=== PATIENT | male | born 1955 | race Caucasian/White ===

== ENCOUNTER → 2016-09-08 | Outpatient (CLI) | payer MEDICARE, MEDICAID | LOC: OD 16:45 | PROVIDERS: ATTEND Internal Medicine | DX: M25.551 Pain in right hip (principal) | CPT/HCPCS: 72170 ==

== ENCOUNTER → 2017-06-21 | Outpatient (CLI) | payer MEDICARE, OTHER, MEDICAID ==
--- NOTE | 2017-06-21 16:28 | RADIOLOGY REPORT (SQ) ---
EXAM DESCRIPTION: HIPS BILATERAL COMPLETED DATE/TIME: 06/21/2017 4:16 pm REASON FOR STUDY: OTHER POLYOSTEOARTHRITIS M15.8 OTHER POLYOSTEOARTHRITIS COMPARISON: 09/08/2016. NUMBER OF VIEWS: Two views TECHNIQUE: AP pelvis and additional frog-leg view of both hips. LIMITATIONS: None. FINDINGS: MINERALIZATION: Normal. HIPS: No acute fracture or dislocation. No worrisome bone lesions. PELVIS AND SACRUM: No acute fracture or dislocation. No worrisome bone lesions. PUBIS AND ISCHIUM: No acute fracture. LOWER LUMBAR SPINE: No significant findings as visualized. SOFT TISSUES: No findings. OTHER: No other significant finding. IMPRESSION: NEGATIVE STUDY OF THE PELVIS AND HIPS. TECHNICAL DOCUMENTATION: JOB ID: [id number] [employer]- All Rights Reserved
--- NOTE | 2017-06-21 16:30 | RADIOLOGY REPORT (SQ) ---
EXAM DESCRIPTION: SHOULDER BILAT 2 OR MORE VIEWS COMPLETED DATE/TIME: 06/21/2017 4:16 pm REASON FOR STUDY: OTHER POLYOSTEOARTHRITIS M15.8 OTHER POLYOSTEOARTHRITIS COMPARISON: None. NUMBER OF VIEWS: Three views. TECHNIQUE: Internal rotation, external rotation, and Y view images acquired of the right and left sh oulder. LIMITATIONS: None. FINDINGS: MINERALIZATION: Normal. BONES: No acute fracture or dislocation. Small osteophytes in the glenohumeral joint and acromioclav icular joint of both shoulders, slightly more prominent in the right glenohumeral joint. No worrisom e bone lesions. JOINTS: No dislocation. VISUALIZED LUNGS AND RIBS: No pneumothorax. No rib fracture. SOFT TISSUES: No radiopaque foreign body. OTHER: No other significant finding. IMPRESSION: DEGENERATIVE CHANGES IN BOTH SHOULDERS. NO ACUTE FINDINGS. TECHNICAL DOCUMENTATION: JOB ID: [id number] ED[employer]- All Rights Reserved
== END ==
LOC: OD 15:42
PROVIDERS: ATTEND Internal Medicine
DX: M15.8 Other polyosteoarthritis (principal)
CPT/HCPCS: 73522

== ENCOUNTER 2017-09-05 18:07 | Emergency (ER) | payer MEDICARE, OTHER, MEDICAID ==
--- NOTE | 2017-09-05 19:40 | ER Document Report ---
ED Medical Screen (RME) - General Chief Complaint: Fall Stated Complaint: FALL/HEAD PAIN Time Seen by Provider: 09/05/17 19:38 Notes: Much of the history is obtained from relative who is in the room with patient. Approximate 4 days ago patient had a fall and hit his head on the couch. This was an unwitnessed fall. No known loss of consciousness. Patient denies neck pain and does not appear to have any neck pain on exam. Patient continues to complain of headache today so patient was brought to the hospital by family. Patient is not on any known blood thinners. Patient has been having some chronic problems with dizziness over the last several months and this is what made him fall 4 days ago. TRAVEL OUTSIDE OF THE [place] IN LAST 30 DAYS: No - Related Data Allergies/Adverse Reactions: No Known Allergies Allergy (Verified 09/05/17 18:07) Past Medical History - Social History Chew tobacco use (# tins/day): No Frequency of alcohol use: None Drug Abuse: None - Past Medical History Cardiac Medical History: Reports: Hx Hypertension Neurological Medical History: Reports: Hx Seizures Endocrine Medical History: Reports: Hx Diabetes Mellitus Type 2 Renal/ Medical History: Denies: Hx Peritoneal Dialysis Musculoskeltal Medical History: Reports Hx Arthritis Psychiatric Medical History: Reports: Hx Schizophrenia - Immunizations Hx Diphtheria, Pertussis, Tetanus Vaccination: - unknown Physical Exam - Vital signs Vitals: Temp Pulse Resp BP Pulse Ox 97.5 F 118 H 20 140/84 H 99 09/05/17 18:27 09/05/17 18:27 09/05/17 18:27 09/05/17 18:27 09/05/17 18:27 Course - Vital Signs Vital signs: Temp Pulse Resp BP Pulse Ox 97.5 F 118 H 20 140/84 H 99 09/05/17 18:27 09/05/17 18:27 09/05/17 18:27 09/05/17 18:27 09/05/17 18:27
[2017-09-05 19:53] LABS: HEMATOCRIT 45.6 % (37.9-51.0); HEMOGLOBIN 15.8 g/dL (13.5-17.0); MEAN CORPUSCULAR HEMOGLOBIN 30.3 pg (27.0-33.4); MEAN CORPUSCULAR HGB CONC 34.7 g/dL (32.0-36.0); MEAN CORPUSCULAR VOLUME 87 fl (80-97); PLATELET COUNT 125 10^3/uL (150-450); RED BLOOD COUNT 5.22 10^6/uL (4.35-5.55); RED CELL DISTRIBUTION WIDTH 13.7 % (11.5-14.0); WHITE BLOOD COUNT 14.5 10^3/uL (4.0-10.5)
[2017-09-05 20:10] LABS: ALANINE AMINOTRANSFERASE 25 U/L (21-72); ALBUMIN 4.3 g/dL (3.5-5.0); ALKALINE PHOSPHATASE 34 U/L (38-126); ANION GAP 10 (5-19); ASPARTATE AMINO TRANSFERASE 13 U/L (17-59); BILIRUBIN,DIRECT 0.4 mg/dL (0.0-0.4); BILIRUBIN,TOTAL 0.4 mg/dL (0.2-1.3); BLOOD UREA NITROGEN 14 mg/dL (7-20); CALCIUM 10.1 mg/dL (8.4-10.2); CARBON DIOXIDE 23 mmol/L (22-30); CHLORIDE 105 mmol/L (98-107); GLUCOSE 108 mg/dL (75-110); SODIUM 137.9 mmol/L (137-145); TOTAL PROTEIN 6.8 g/dL (6.3-8.2)
[2017-09-05 20:13] LABS: ABSOLUTE LYMPHOCYTES# (MANUAL) 10.4 10^3/uL (0.5-4.7); ABSOLUTE MONOCYTES # (MANUAL) 0.9 10^3/uL (0.1-1.4); ABSOLUTE NEUTROPHILS# (MANUAL) 3.2 10^3/uL (1.7-8.2); BASOPHILS % (MANUAL) 0 % (0-2); EOSINOPHILS % (MANUAL) 0 % (0-6); LYMPHOCYTES % (MANUAL) 58 % (13-45); MONOCYTES % (MANUAL) 6 % (3-13); SEGMENTED NEUTROPHILS % (MAN) 22 % (42-78); TOTAL CELLS COUNTED 100
[2017-09-05 20:15] LABS: PLATELET COMMENT ADEQUATE; RBC MORPHOLOGY COMMENT NORMO-CYTIC/CHROMIC
--- NOTE | 2017-09-05 20:20 | ER Document Report ---
ED Fall - General Chief Complaint: Fall Stated Complaint: FALL/HEAD PAIN Time Seen by Provider: 09/05/17 19:38 Mode of Arrival: Ambulatory Information source: Patient, Relative TRAVEL OUTSIDE OF THE [place] IN LAST 30 DAYS: No - HPI Patient complains to provider of: FALL, HEADACHE Notes: The patient is here with family at the bedside. Most of the information is obtained from the family. Apparently 4 days ago the patient had an unwitnessed fall. Is unclear if he had a seizure or if he tripped and fell as the patient says both of these occurred. The patient does have a history of seizure disorder. When he fell he hit the back of his head. Is unclear if there was loss of consciousness. Apparently he has been feeling fine until today when he started to have a headache again. no vomiting. He is on no blood thinners. No chest pain or shortness of breath. No unilateral numbness, tingling, weakness. Patient has a history of chronic dizziness, his relatives is that it is not uncommon for him to have falls. Patient denies any change in his vision. He denies any neck, back, chest, abdominal pain. He denies any other injuries with the fall. His only concern is that he still has a headache. - Related data Allergies/Adverse Reactions: No Known Allergies Allergy (Verified 09/05/17 18:07) Past Medical History - Social History Smoking Status: Never Smoker Chew tobacco use (# tins/day): No Frequency of alcohol use: None Drug Abuse: None Family History: None Patient has suicidal ideation: No Patient has homicidal ideation: No - Past Medical History Cardiac Medical History: Reports: Hx Hypertension Neurological Medical History: Reports: Hx Seizures Endocrine Medical History: Reports: Hx Diabetes Mellitus Type 2 Renal/ Medical History: Denies: Hx Peritoneal Dialysis Musculoskeltal Medical History: Reports Hx Arthritis Psychiatric Medical History: Reports: Hx Schizophrenia - Immunizations Hx Diphtheria, Pertussis, Tetanus Vaccination: - unknown Review of Systems - Review of Systems -: Yes All other systems reviewed and negative Physical Exam - Vital signs Vitals: Temp Pulse Resp BP Pulse Ox 97.5 F 118 H 20 140/84 H 99 09/05/17 18:27 09/05/17 18:27 09/05/17 18:27 09/05/17 18:27 09/05/17 18:27 - Notes Notes: GENERAL: alert, cooperative, nontoxic, no distress. HEAD: normocephalic, atraumatic EYES: conjunctiva pink without discharge, no external redness or swelling. PERRL , EOM'S INTACT EARS: no external swelling, no external redness. No hemotympanum EM NOSE: atraumatic, no external swelling. No bleeding MOUTH/THROAT: mucous membranes moist and pink, posterior pharynx without erythema, swelling, exudate. No trismus or drooling. NECK: soft, supple, full range of motion, no meningismus. No midline tenderness step-offs or crepitus to palpation of the cervical spine. CHEST: no distress, lungs clear and equal throughout. No wheezing, rales, rhonchi. CARDIAC: regular rate and rhythm, no murmur, normal capillary refill, normal pulses. No peripheral edema noted. ABDOMEN: Soft, nontender. No ecchymosis. No rebound tenderness or guarding. BACK: full range of motion, no CVA tenderness. No midline tenderness step-offs or crepitus to palpation of the thoracic or lumbar spine. EXTREMITIES: full rangE OF MOTION. Normal sensation bilaterally. Normal strength bilaterally. NEURO: Alert and oriented 3. Cranial nerves II through XII are grossly intact. Normal sensation and strength to all 4 extremities. PYSCH: appropriate mood, affect. Patient is cooperative. SKIN: pink, warm, dry, no rash. Course - Re-evaluation Re-evalutation: 09/05/17 21:05 The patient is nontoxic appearing with stable vitals. The patient is here after either tripping and falling or having a seizure and falling 4 days ago and hitting his head. He has a known history of seizure disorder. Patient has a chronic history of dizziness. Apparently had a headache the day that he hit his head, this resolved and then recurred again today. Lab work is unremarkable aside from an nonspecifically elevated white cell count of 14-1/2. EKG shows no acute findings. Head CT shows no acute findings for intracranial injury. Patient has a nonfocal neurological exam is at baseline according to his family members is here with him. This point the patient will be discharged home with instructions to take ibuprofen as needed for pain. Follow-up with his doctor if not better in the next 3-5 days, sooner for worsening symptoms, high fever, persistent vomiting, acting abnormal, or for any further concerns. The patient is noted to have elevated blood pressure during today's emergency department visit. The patient was informed of this finding. The patient was instructed that this may be related to pre-hypertension and requires further evaluation with a primary care provider. The patient has no hypertensive symptoms at this time. The patient's emergency department workup and current diagnosis were explained to the patient and or family. Follow-up instructions were provided. Medications if prescribed were discussed. Instructions for when to return to the emergency department including specific worrisome symptoms were discussed with the patient and/or family. - Vital Signs Vital signs: Temp Pulse Resp BP Pulse Ox 97.5 F 118 H 20 140/84 H 99 09/05/17 18:27 09/05/17 18:27 09/05/17 18:27 09/05/17 18:27 09/05/17 18:27 - Laboratory Result Diagrams: 09/05/17 19:40 09/05/17 19:40 Laboratory results interpreted by me: 09/05/17 09/05/17 19:40 19:40 WBC 14.5 H Plt Count 125 L Seg Neuts % (Manual) 22 L Lymphocytes % (Manual) 58 H Abs Lymphs (Manual) 10.4 H AST 13 L Alkaline Phosphatase 34 L - Diagnostic Test Radiology reviewed: Image reviewed, Reports reviewed - Head CT negative for acute findings. - EKG Interpretation by [facility] EKG shows normal: Sinus rhythm, [place], Intervals, QRS Complexes, ST-T Waves Rate: Normal When compared to previous EKG there are: No significant change Discharge - Discharge Clinical Impression: Head injury Condition: Stable Disposition: HOME, SELF-CARE Instructions: Head Injury Precautions ([facility]) Additional Instructions: Ibuprofen as needed for pain. Drink plenty of fluids. Follow-up if not better in 3-5 days, sooner for increasing pain, high fever, persistent vomiting, or for any further concerns. Your blood pressure was elevated during today's visit. Have this rechecked with your doctor. Forms: Elevated Blood Pressure, Smoking Cessation Education
--- NOTE | 2017-09-05 20:22 | RADIOLOGY REPORT (SQ) ---
EXAM DESCRIPTION: CT HEAD WITHOUT COMPLETED DATE/TIME: 09/05/2017 8:03 pm REASON FOR STUDY: fall/pain COMPARISON: 08/10/2014 TECHNIQUE: Axial images acquired through the brain without intravenous contrast. Images reviewed wi th bone, brain and subdural windows. Images stored on PACS. All CT scanners at this facility use dose modulation, iterative reconstruction, and/or weight based d osing when appropriate to reduce radiation dose to as low as reasonably achievable (ALARA). [facility]: Dose Right [facility]: CareDose [facility]: Dose Right [facility]: Teradose 4D [facility]: Smart Technologies RADIATION DOSE: CT Rad equipment meets quality standard of care and radiation dose reduction techniq ues were employed. CTDIvol: 64.6 mGy. DLP: 1034 mGy-cm. mGy. LIMITATIONS: None. FINDINGS: VENTRICLES: There is prominence of the lateral ventricles a this is stable. CEREBRUM: No masses. No hemorrhage. No midline shift. No evidence for acute infarction. Normal gra y/white matter differentiation. No areas of low density in the white matter. CEREBELLUM: No masses. No hemorrhage. No alteration of density. No evidence for acute infarction. EXTRAAXIAL SPACES: No fluid collections. No masses. ORBITS AND GLOBE: No intra- or extraconal masses. Normal contour of globe without masses. CALVARIUM: No fracture. PARANASAL SINUSES: There is a small mucous retention cyst in the right maxillary sinus. SOFT TISSUES: No mass or hematoma. OTHER: No other significant finding. IMPRESSION: Mild maxillary sinus disease. There is no acute intracranial pathology. EVIDENCE OF ACUTE STROKE: NO. COMMENT: Quality ID # [id number]: Final reports with documentation of one or more dose reduction techniques (e.g., Automated exposure control, adjustment of the mA and/or kV according to patient size, use of iterative reconstruction technique) TECHNICAL DOCUMENTATION: JOB ID: [id number] [employer]- All Rights Reserved Reading location - IP/workstation name: [email or web address]
[2017-09-05 21:35] VITALS: BP 127/77
--- NOTE | 2017-09-05 21:49 | EKG REPORT ---
SEVERITY:- NORMAL ECG - SINUS RHYTHM : Confirmed by: Melany Hinson 05-Sep-2017 21:48:24
[2017-09-06 12:55] LABS: PATH REVIEW PATHOLOGIST REVIEWED
== END 2017-09-05 21:35 | disposition home or self-care (01) ==
LOC: ER 18:07
DX: S09.90XA Unspecified injury of head, initial encounter (principal); W19.XXXA Unspecified fall, initial encounter; I10 Essential (primary) hypertension; E11.9 Type 2 diabetes mellitus without complications
CPT/HCPCS: 36415; 70450; 80053; 85025; 93005; 93010; 99284

== ENCOUNTER 2017-11-15 10:43 | Day surgery (SDC) | payer MEDICARE, OTHER, MEDICAID ==
[~2017-11-15 10:43] MED LIST: BUPIVACAINE HCL 0.75% INJ/PF (7.5 MG/1 ML) 10 ML SDV OD PRN; CHONDR SU A NA/HYALUR INTRAOC KIT (SURGICARE) ONE; EPINEPHRINE INJ/PF 1 MG/1 ML AMPULE ONE; KETOROLAC TROMETHAMINE 0.45% 4 DROP/0.4 ML DROPERETTE OD PRN; LIDOCAINE 1% INJ-PF (10 MG/ML) 30 ML SDV ONE; LIDOCAINE 4% INJ/PF (40 MG/ML) 5 ML AMPUL OD PRN
[2017-11-15] MEDS: TROPICAMIDE 1% OPH SOLN 3 ML OD PRN ×3 (11:06→11:32)
[2017-11-15] MEDS: CYCLOPENTOLATE 0.2%/PHENYLEPHRINE 1% OPH SOLN 2 ML OD PRN ×3 (11:06→11:32)
[2017-11-15] MEDS: BESIFLOXACIN HCL 0.6% OPH SUSP 5 ML BOTTLE OD PRN ×3 (11:07→12:04)
[2017-11-15] MEDS: TETRACAINE HCL 0.5% OPH SOLN 0.6 ML DROPERETTE OD PRN ×2 (11:07→11:31)
[2017-11-15] MEDS ORDERED: FENTANYL CITRATE INJ/PF 100 MCG/2 ML AMPUL ONE (11:15)
[2017-11-15] MEDS ORDERED: MIDAZOLAM 2 MG/2 ML INJ ONE (11:15)
--- NOTE | 2017-11-15 12:14 | [facility] OPERATIVE REPORT E ---
[facility] Operative Report NAME: KEYA SOSA AGE: 62Y DATE OF SURGERY: 11/15/2017 ROOM: PREOPERATIVE DIAGNOSIS: Cataract, right eye. POSTOPERATIVE DIAGNOSIS: Cataract, right eye. PROCEDURE PERFORMED: Phacoemulsification with posterior chamber intraocular lens, right eye. SURGEON: JUAN FRANCISCO CLINE M.D. ANESTHESIA: Topical with MAC. DESCRIPTION OF PROCEDURE: The patient was brought to the operating room and placed on the operative table. Following tetracaine drops, topical anesthesia was administered. This consisted of instrument wipe pledgets soaked in a solution of 4% Xylocaine mixed with 0.75% Marcaine in a 1:2 ratio. A 2 x 1 cm pledget was placed in the superior fornix. A 1 x 1 cm pledget was placed in the inferior fornix. The eye was patched shut for 5 minutes. The patch was removed. The eye was sterilely prepped and draped in the usual manner. Lid speculum was placed in the eye. The pledgets were removed, 4-0 black silk sutures were placed around the superior and the inferior rectus muscles to be used as traction. A conjunctival peritomy was made at the 10 o'clock position. Hemostasis was obtained with bipolar cautery. A posterior limbal groove was created using a crescent knife and dissected anteriorly towards the cornea. A sharp point blade was used to create a paracentesis site at the 2 o'clock position. A 2.4 mm keratome was used to enter the anterior chamber through the groove. Viscoelastic was injected into the anterior chamber. An anterior capsulotomy was performed using Utrata forceps in a capsulorrhexis fashion. Hydrodissection and hydrodelineation were performed. Phacoemulsification was performed in lgeykv-zlc-ykozack technique. Total phaco time, 48 seconds. Following this, the I/A unit was used to remove residual cortex. Viscoelastic was injected into the capsular bag. Intraocular lens Model [id number], 22.0 diopters, serial number [id number] was placed in the capsular bag. The I/A unit was used to remove residual viscoelastic. The wound was seen to be watertight under high and low pressure, and no sutures were placed. The intraocular lens was well centered. The pressure was adjusted in the eye to normal pressure. The 4-0 black silk sutures and lid speculum were removed. The eye was shielded after Besivance drops were placed. The patient tolerated the procedure well and was sent to the recovery room in good condition. DICTATING PHYSICIAN: JUAN FRANCISCO CLINE M.D. [id number] PHY#: [id number] ID: [id number] JOB#: [id number] ACCT: [id number] cc:JUAN FRANCISCO CLINE M.D. >
--- NOTE | 2017-11-15 12:15 | [facility] DISCHARGE SUMMARY E ---
[facility] Discharge Summary NAME: KEYA SOSA AGE: 62Y ADMITTED: 11/15/2017 DISCHARGED: 11/15/2017 HOSPITAL COURSE: The patient is a 62-year-old gentleman who underwent uneventful cataract extraction with intraocular lens implant, right eye, on 11/15/2017. He will be discharged to home. He was instructed to resume preoperative medications, to take Tylenol as needed for discomfort, to keep his eye shielded, to use Besivance, Durezol, and Ilevro at 3:00 p.m. and 8:00 p.m., and to follow up in my office in 1 day. DICTATING PHYSICIAN: JUAN FRANCISCO CLINE M.D. [id number] PHY#: [id number] ID: [id number] JOB#: [id number] ACCT: [id number] cc:JUAN FRANCISCO CLINE M.D. >
== END 2017-11-15 12:45 | disposition home or self-care (01) ==
LOC: SC 10:43
PROVIDERS: ATTEND Ophthalmology
DX: H25.89 Other age-related cataract (principal); I10 Essential (primary) hypertension; E11.9 Type 2 diabetes mellitus without complications; G40.909 Epilepsy, unspecified, not intractable, without status epilepticus; Z79.899 Other long term (current) drug therapy; Z79.1 Long term (current) use of non-steroidal anti-inflammatories (NSAID)
CPT/HCPCS: 66984; V2632; J2250; J3490 ×4; A9270; J0171; J3010; 142

== ENCOUNTER 2017-12-06 07:40 | Day surgery (SDC) | payer MEDICARE, OTHER, MEDICAID ==
[~2017-12-06 07:40] MED LIST changes: -BUPIVACAINE HCL 0.75% INJ/PF (7.5 MG/1 ML) 10 ML SDV OD PRN; +BUPIVACAINE HCL 0.75% INJ/PF (7.5 MG/1 ML) 10 ML SDV OS PRN; -KETOROLAC TROMETHAMINE 0.45% 4 DROP/0.4 ML DROPERETTE OD PRN; +KETOROLAC TROMETHAMINE 0.45% 4 DROP/0.4 ML DROPERETTE OS PRN; -LIDOCAINE 4% INJ/PF (40 MG/ML) 5 ML AMPUL OD PRN; +LIDOCAINE 4% INJ/PF (40 MG/ML) 5 ML AMPUL OS PRN; +TOBRAMYCIN SULFATE/DEXAMETH OPH SUSP 2.5 ML ONE
[2017-12-06] MEDS: TROPICAMIDE 1% OPH SOLN 3 ML OS PRN ×3 (08:21→08:45)
[2017-12-06] MEDS: TETRACAINE HCL 0.5% OPH SOLN 0.6 ML DROPERETTE OS PRN ×2 (08:21→08:50)
[2017-12-06] MEDS: TOBRAMYCIN SULFATE/DEXAMETH OPH SUSP 2.5 ML OS PRN ×4 (08:21→09:25)
[2017-12-06] MEDS: CYCLOPENTOLATE 0.2%/PHENYLEPHRINE 1% OPH SOLN 2 ML OS PRN ×3 (08:21→08:45)
[2017-12-06] MEDS ORDERED: FENTANYL CITRATE INJ/PF 100 MCG/2 ML AMPUL ONE (08:35)
[2017-12-06] MEDS ORDERED: MIDAZOLAM 2 MG/2 ML INJ ONE (08:35)
[2017-12-06] MEDS ORDERED: ONDANSETRON HCL INJ/PF 4 MG/2 ML SDV ONE (08:36)
--- NOTE | 2017-12-06 10:05 | [facility] OPERATIVE REPORT E ---
[facility] Operative Report NAME: KEYA SOSA AGE: 62Y DATE OF SURGERY: 12/06/2017 ROOM: PREOPERATIVE DIAGNOSIS: Cataract, left eye. POSTOPERATIVE DIAGNOSIS: Cataract, left eye. OPERATION: Phacoemulsification with posterior chamber intraocular lens, left eye. SURGEON: JUAN FRANCISCO CLINE M.D. ANESTHESIA: Topical with MAC. INDICATIONS FOR SURGERY: Difficulty with reading and watching TV. Best corrected vision acuity 20/50. PROCEDURE: The patient was brought to the Operating Room and placed on the operative table. Following tetracaine drops, topical anesthesia was administered. This consisted of instrument wipe pledgets soaked in a solution of 4% Xylocaine mixed with 0.75% Marcaine in a 1:2 ratio. A 2 x 1 cm pledget was placed in the superior fornix. A 1 x 1 cm pledget was placed in the inferior fornix. The eye was patched shut for 5 minutes. The patch was removed. The eye was sterilely prepped and draped in the usual manner. Lid speculum was placed in the eye. The pledgets were removed. 4-0 black silk sutures were placed around the superior and the inferior rectus muscles to be used as traction. A conjunctival peritomy was made at the 10 o'clock position. Hemostasis was obtained with bipolar cautery. A posterior limbal groove was created using a crescent knife and dissected anteriorly towards the cornea. A sharp point blade was used to create a paracentesis site at the 2 o'clock position. A 2.4 mm keratome was used to enter the anterior chamber through the groove. Viscoelastic was injected into the anterior chamber. An anterior capsulotomy was performed using Utrata forceps in a capsulorrhexis fashion. Hydrodissection and hydrodelineation were performed. Phacoemulsification was performed in zooegn-pwf-yzzwtib technique. A total of 4.75 CDE seconds phaco time was used. Following this, the I/A unit was used to remove residual cortex. Viscoelastic was injected into the capsular bag. Intraocular lens model SN60WF, 23.0 diopters, serial number [id number] was placed in the capsular bag. The I/A unit was used to remove residual viscoelastic. The wound was seen to be watertight under high and low pressure, and no sutures were placed. The intraocular lens was well centered. The pressure was adjusted in the eye to normal pressure. The 4-0 black silk sutures and lid speculum were removed. The eye was shielded after Besivance drops were placed. The patient tolerated the procedure well and was sent to the Recovery Room in good condition. DICTATING PHYSICIAN: JUAN FRANCISCO CLINE M.D. [id number] PHY#: [id number] ID: [id number] JOB#: [id number] ACCT: [id number] cc:JUAN FRANCISCO CLINE M.D. >
--- NOTE | 2017-12-06 10:09 | [facility] DISCHARGE SUMMARY E ---
[facility] Discharge Summary NAME: KEYA SOSA AGE: 62Y ADMITTED: 12/06/2017 DISCHARGED: 12/06/2017 FINAL DIAGNOSIS: Cataract, left eye. HOSPITAL COURSE: The patient is a 62-year-old gentleman who underwent uneventful cataract extraction with intraocular lens implant left eye on 12/06/17. He will be discharged to home. He is instructed to resume preoperative medications, to take Tylenol as needed for discomfort, to keep his eye shielded, to use Tobramycin, Durezol and ketorolac at 3 p.m. and 8 p.m., and to follow up in my office in one day. DICTATING PHYSICIAN: JUAN FRANCISCO CLINE M.D. [id number] PHY#: [id number] ID: [id number] JOB#: [id number] ACCT: [id number] cc:JUAN FRANCISCO CLINE M.D. >
== END 2017-12-06 10:15 | disposition home or self-care (01) ==
LOC: SC 07:40
PROVIDERS: ATTEND Ophthalmology
DX: H25.812 Combined forms of age-related cataract, left eye (principal); Z96.1 Presence of intraocular lens; G40.909 Epilepsy, unspecified, not intractable, without status epilepticus; I10 Essential (primary) hypertension; Z79.899 Other long term (current) drug therapy
CPT/HCPCS: 66984; 82962; V2632; J2250; J3490 ×5; A9270; J0171; J3010; J2405; 142

== ENCOUNTER → 2017-12-26 | Outpatient (CLI) | payer MEDICARE, OTHER, MEDICAID ==
[2017-12-26 11:39] LABS: HEMATOCRIT 41.8 % (37.9-51.0); HEMOGLOBIN 14.6 g/dL (13.5-17.0); MEAN CORPUSCULAR HEMOGLOBIN 31.1 pg (27.0-33.4); MEAN CORPUSCULAR HGB CONC 34.9 g/dL (32.0-36.0); MEAN CORPUSCULAR VOLUME 89 fl (80-97); PLATELET COUNT 161 10^3/uL (150-450); RED BLOOD COUNT 4.68 10^6/uL (4.35-5.55); RED CELL DISTRIBUTION WIDTH 14.6 % (11.5-14.0); WHITE BLOOD COUNT 9.8 10^3/uL (4.0-10.5)
[2017-12-26 11:51] LABS: ALANINE AMINOTRANSFERASE 18 U/L (21-72); ALBUMIN 4.1 g/dL (3.5-5.0); ALKALINE PHOSPHATASE 34 U/L (38-126); ANION GAP 13 (5-19); ASPARTATE AMINO TRANSFERASE 11 U/L (17-59); BILIRUBIN,DIRECT 0.3 mg/dL (0.0-0.4); BILIRUBIN,TOTAL 0.6 mg/dL (0.2-1.3); BLOOD UREA NITROGEN 16 mg/dL (7-20); CALCIUM 10.2 mg/dL (8.4-10.2); CARBON DIOXIDE 23 mmol/L (22-30); CHLORIDE 107 mmol/L (98-107); CHOLESTEROL 143.21 mg/dL (0-200); GLUCOSE 90 mg/dL (75-110); POTASSIUM 4.1 mmol/L (3.6-5.0); SODIUM 143.4 mmol/L (137-145); TOTAL PROTEIN 6.7 g/dL (6.3-8.2); TRIGLYCERIDES 105 mg/dL (<150)
[2017-12-26 11:53] LABS: ABSOLUTE LYMPHOCYTES# (MANUAL) 7.9 10^3/uL (0.5-4.7); ABSOLUTE MONOCYTES # (MANUAL) 0.1 10^3/uL (0.1-1.4); ABSOLUTE NEUTROPHILS# (MANUAL) 1.8 10^3/uL (1.7-8.2); BASOPHILS % (MANUAL) 0 % (0-2); EOSINOPHILS % (MANUAL) 0 % (0-6); LYMPHOCYTES % (MANUAL) 77 % (13-45); MONOCYTES % (MANUAL) 1 % (3-13); SEGMENTED NEUTROPHILS % (MAN) 18 % (42-78); TOTAL CELLS COUNTED 100
[2017-12-26 11:55] LABS: ANISOCYTOSIS SLIGHT; BURR CELLS 1+; OVALOCYTES SLIGHT; PLATELET COMMENT ADEQUATE; POIKILOCYTOSIS 1+
[2017-12-26 12:03] LABS: DIRECT LDL 69 mg/dL (<100)
[2017-12-27 12:21] LABS: PATH REVIEW PATHOLOGIST REVIEWED
== END ==
LOC: OD 10:12
PROVIDERS: ATTEND Physician Assistant
DX: F25.0 Schizoaffective disorder, bipolar type (principal); Z79.899 Other long term (current) drug therapy
CPT/HCPCS: 36415; 80053; 80061; 80164; 83036; 84146; 85025

== ENCOUNTER 2018-09-08 17:26 | Observation (INO) | payer MEDICARE, OTHER, MEDICAID ==
[2018-09-08] MEDS ORDERED: NORMAL SALINE 1000 ML 1,000 ML IV ONE (18:10)
[2018-09-08] MEDS ORDERED: ONDANSETRON HCL INJ/PF 4 MG/2 ML SDV IV ONE (18:10)
--- NOTE | 2018-09-08 18:10 | ER Document Report ---
ED Medical Screen (RME) - General Chief Complaint: Abdominal Pain Stated Complaint: ABDOMINAL PAIN Time Seen by Provider: 09/08/18 18:08 Primary Care Provider: GAGAN PINEDO PA-C [Primary Care Provider] - Follow up as needed Mode of Arrival: Ambulatory Information source: Patient Notes: This is a 63-year-old man with a history of epilepsy, hypertension, diabetes who was brought into the emergency room with nausea, vomiting, diarrhea and epigastric pain. Patient is accompanied by his brother who is taking care of him. Patient is developmentally challenged. TRAVEL OUTSIDE OF THE [place] IN LAST 30 DAYS: No - Related Data Allergies/Adverse Reactions: No Known Allergies Allergy (Verified 09/08/18 17:28) Past Medical History - Social History Chew tobacco use (# tins/day): No Frequency of alcohol use: None Drug Abuse: None - Past Medical History Cardiac Medical History: Reports: Hx Hypertension Denies: Hx Heart Attack Pulmonary Medical History: Denies: Hx Asthma Neurological Medical History: Reports: Hx Seizures. Denies: Hx Cerebrovascular Accident Endocrine Medical History: Reports: Hx Diabetes Mellitus Type 2 Renal/ Medical History: Denies: Hx Peritoneal Dialysis GI Medical History: Denies: Hx Hepatitis, Hx Hiatal Hernia, Hx Ulcer Musculoskeltal Medical History: Reports Hx Arthritis Psychiatric Medical History: Reports: Hx Schizophrenia Infectious Medical History: Denies: Hx Hepatitis Past Surgical History: Reports: Hx Orthopedic Surgery - R hand. Denies: Hx Open Heart Surgery, Hx Pacemaker - Immunizations Hx Diphtheria, Pertussis, Tetanus Vaccination: - unknown Physical Exam - Vital signs Vitals: Temp Pulse Resp BP Pulse Ox 98.7 F 129 H 18 101/71 93 09/08/18 17:34 09/08/18 17:34 09/08/18 17:34 09/08/18 17:34 09/08/18 17:34 Course - Vital Signs Vital signs: Temp Pulse Resp BP Pulse Ox 98.7 F 129 H 18 101/71 93 09/08/18 17:34 09/08/18 17:34 09/08/18 17:34 09/08/18 17:34 09/08/18 17:34 Doctor's Discharge - Discharge Referrals: GAGAN PINEDO PA-C [Primary Care Provider] - Follow up as needed
--- NOTE | 2018-09-08 18:51 | RADIOLOGY REPORT (SQ) ---
EXAM DESCRIPTION: CHEST 2 VIEWS COMPLETED DATE/TIME: 09/08/2018 6:38 pm REASON FOR STUDY: chest pain COMPARISON: 07/15/2014 TECHNIQUE: Frontal and lateral radiographic views of the chest acquired. NUMBER OF VIEWS: Two view. LIMITATIONS: None. FINDINGS: LUNGS AND PLEURA: No pneumothorax. Increased markings in the lingula, possible developing infiltrate versus subsegmental atelectasis. No dense consolidation or pleural effusion. MEDIASTINUM AND HILAR STRUCTURES: Stable. HEART AND VASCULAR STRUCTURES: Stable. BONES: No acute findings. HARDWARE: None in the chest. OTHER: No other significant finding. IMPRESSION: Increased markings in the lingula, possible developing infiltrate versus subsegmental at electasis. No dense consolidation or pleural effusion. COMMENT: Follow-up radiograph recommended in 1 month to confirm clearing. TECHNICAL DOCUMENTATION: JOB ID: [id number] [employer]- All Rights Reserved Reading location - IP/workstation name: [email or web address]
[2018-09-08 19:15] LABS: ABSOLUTE LYMPHOCYTES (AUTO) 2.2 10^3/uL (0.5-4.7); ABSOLUTE MONOCYTES (AUTO) 0.8 10^3/uL (0.1-1.4); ABSOLUTE NEUT (AUTO) 4.2 10^3/uL (1.7-8.2); BASOPHILS % (AUTO) 0.4 % (0-2); EOSINOPHILS % (AUTO) 0.1 % (0-6); HEMATOCRIT 42.8 % (37.9-51.0); HEMOGLOBIN 15.1 g/dL (13.5-17.0); LYMPHOCYTES % (AUTO) 30.5 % (13-45); MEAN CORPUSCULAR HEMOGLOBIN 29.8 pg (27.0-33.4); MEAN CORPUSCULAR HGB CONC 35.4 g/dL (32.0-36.0); MEAN CORPUSCULAR VOLUME 84 fl (80-97); MONOCYTES % (AUTO) 10.8 % (3-13); PLATELET COUNT 160 10^3/uL (150-450); RED BLOOD COUNT 5.09 10^6/uL (4.35-5.55); RED CELL DISTRIBUTION WIDTH 14.5 % (11.5-14.0); SEGMENTED NEUTROPHILS % (AUTO) 58.2 % (42-78); TOTAL CELLS COUNTED % (AUTO) 100 %; WHITE BLOOD COUNT 7.3 10^3/uL (4.0-10.5)
[2018-09-08 19:47] LABS: ALANINE AMINOTRANSFERASE 10 U/L (21-72); ALBUMIN 4.6 g/dL (3.5-5.0); ALKALINE PHOSPHATASE 39 U/L (38-126); ANION GAP 18 (5-19); ASPARTATE AMINO TRANSFERASE 14 U/L (17-59); BILIRUBIN,DIRECT 0.2 mg/dL (0.0-0.4); BILIRUBIN,TOTAL 0.5 mg/dL (0.2-1.3); BLOOD UREA NITROGEN 48 mg/dL (7-20); CALCIUM 9.9 mg/dL (8.4-10.2); CARBON DIOXIDE 17 mmol/L (22-30); CHLORIDE 103 mmol/L (98-107); GLUCOSE 139 mg/dL (75-110); LIPASE 158.5 U/L (23-300); POTASSIUM 3.7 mmol/L (3.6-5.0); SODIUM 137.9 mmol/L (137-145); TOTAL PROTEIN 7.1 g/dL (6.3-8.2)
[2018-09-08] MEDS ORDERED: RINGERS SOLUTION,LACTATED 1,000 ML IV ONE (20:27)
[2018-09-08] MEDS ORDERED: LEVOFLOXACIN 750 MG/D5W RTU 750 MG/150 ML RTUPB IV ONE (21:02)
--- NOTE | 2018-09-08 21:04 | ER Document Report ---
ED General - General Chief Complaint: Abdominal Pain Stated Complaint: ABDOMINAL PAIN Time Seen by Provider: 09/08/18 18:08 Primary Care Provider: GAGAN PINEDO PA-C [Primary Care Provider] - Follow up as needed Mode of Arrival: Ambulatory Cannot obtain history due to: Mentally challenged Notes: Patient is a 63-year-old male with past medical history of diabetes, hypertension, no prior abdominal surgical history, mental retardation, presents with his brother due to concerns of 2-3 days of intractable nausea, vomiting, has not had significant quantity of bowel movements. History is limited secondary to the patient's MR. He describes generalized, aching discomfort. Nothing improves or worsens his symptoms. No history of similar symptoms in the past. There have been multiple family members sick with similar illnesses recently. Mother is concerned about possible food borne contamination. Patient has not seen his primary care physician regarding today's concerns. TRAVEL OUTSIDE OF THE [place] IN LAST 30 DAYS: No - Related Data Allergies/Adverse Reactions: No Known Allergies Allergy (Verified 09/08/18 17:28) Past Medical History - General Information source: Patient, Relative - Social History Smoking Status: Never Smoker Chew tobacco use (# tins/day): No Frequency of alcohol use: None Drug Abuse: None Lives with: Family Family History: Reviewed & Not Pertinent Patient has suicidal ideation: No Patient has homicidal ideation: No - Past Medical History Cardiac Medical History: Reports: Hx Hypertension Denies: Hx Heart Attack Pulmonary Medical History: Denies: Hx Asthma Neurological Medical History: Reports: Hx Seizures. Denies: Hx Cerebrovascular Accident Endocrine Medical History: Reports: Hx Diabetes Mellitus Type 2 Renal/ Medical History: Denies: Hx Peritoneal Dialysis GI Medical History: Denies: Hx Hepatitis, Hx Hiatal Hernia, Hx Ulcer Musculoskeletal Medical History: Reports Hx Arthritis Psychiatric Medical History: Reports: Hx Schizophrenia Infectious Medical History: Denies: Hx Hepatitis Past Surgical History: Reports: Hx Orthopedic Surgery - R hand. Denies: Hx Open Heart Surgery, Hx Pacemaker - Immunizations Hx Diphtheria, Pertussis, Tetanus Vaccination: - unknown Review of Systems - Review of Systems Notes: Constitutional: Negative for fever. HENT: Negative for sore throat. Eyes: Negative for visual changes. Cardiovascular: Negative for chest pain. Respiratory: Negative for shortness of breath. Gastrointestinal: Positive for abdominal cramping and vomiting Genitourinary: Negative for dysuria. Musculoskeletal: Negative for back pain. Skin: Negative for rash. Neurological: Negative for headaches, weakness or numbness. 10 point ROS negative except as marked above and in HPI. Physical Exam - Vital signs Vitals: Temp Pulse Resp BP Pulse Ox 98.7 F 129 H 18 101/71 93 09/08/18 17:34 09/08/18 17:34 09/08/18 17:34 09/08/18 17:34 09/08/18 17:34 Interpretation: Tachycardic Notes: PHYSICAL EXAMINATION: GENERAL: Appears moderately comfortable but in no acute distress HEAD: Atraumatic, normocephalic. EYES: Pupils equal round and reactive to light, extraocular movements intact, sclera anicteric, conjunctiva are normal. ENT: nares patent, oropharynx clear without exudates. Dry mucous membranes. NECK: Normal range of motion, supple without lymphadenopathy LUNGS: Breath sounds clear to auscultation bilaterally and equal. No wheezes r ales or rhonchi. HEART: Regular tachycardia without murmurs ABDOMEN: Soft, nontender, normoactive bowel sounds. No guarding, no rebound. No masses appreciated. EXTREMITIES: Normal range of motion, no pitting or edema. No cyanosis. NEUROLOGICAL: No focal neurological deficits. Moves all extremities spontaneously and on command. PSYCH: Alert, oriented, apparent MR. SKIN: Warm, Dry, normal turgor, no rashes or lesions noted. Course - Re-evaluation Re-evalutation: 09/08/18 21:01 Patient presents with complaints of 2-3 days of persistent vomiting, difficulty tolerating oral intake at home, no significant bowel movements. Patient is noted to be tachycardic into the 120s at time of presentation. Does appear clinically dehydrated on exam. The patient does also have acute renal failure with a prerenal azotemia pattern on conference of metabolic panel and will likely require hospitalization secondary to this issue. IV fluid resuscitation has been initiated. Chest x-ray shows a possible lingular pneumonia and the patient has had a cough over the past several days which could also be contributing to his overall picture. Blood cultures and IV levofloxacin have been initiated. 09/08/18 22:58 CT without any acute findings. I will contact Dr. Toth and request hospitalization given acute kidney failure, ongoing tachycardia, as well as persistent vomiting. - Vital Signs Vital signs: Temp Pulse Resp BP Pulse Ox 98.7 F 129 H 18 101/71 93 09/08/18 17:34 09/08/18 17:34 09/08/18 17:34 09/08/18 17:34 09/08/18 17:34 - Laboratory Result Diagrams: 09/08/18 19:01 09/08/18 19:01 Laboratory results interpreted by me: 09/08/18 09/08/18 19:01 19:01 RDW 14.5 H Carbon Dioxide 17 L BUN 48 H Creatinine 2.42 H Est GFR ( Amer) 33 L Est GFR (Non-Af Amer) 27 L Glucose 139 H AST 14 L ALT 10 L Discharge - Discharge Clinical Impression: Prerenal azotemia, Lingular pneumonia, Dehydration Condition: Fair Disposition: ADMITTED INPATIENT Admitting Provider: [facility] Unit Admitted: Medical Floor Referrals: GAGAN PINEDO PA-C [Primary Care Provider] - Follow up as needed
[2018-09-08 21:38] LABS: APPEARANCE,URINE CLEAR; BILIRUBIN,URINE NEGATIVE (NEGATIVE); COLOR,URINE YELLOW; GLUCOSE, URINE NEGATIVE (NEGATIVE); KETONES,URINE NEGATIVE (NEGATIVE); LEUKOCYTE ESTERASE,URINE NEGATIVE (NEGATIVE); NITRITE,URINE NEGATIVE (NEGATIVE); PROTEIN,URINE NEGATIVE (NEGATIVE); URINE SPECIFIC GRAVITY 1.018; UROBILINOGEN,URINE NEGATIVE mg/dL (<2.0)
--- NOTE | 2018-09-08 22:17 | RADIOLOGY REPORT (SQ) ---
EXAM DESCRIPTION: CT ABDOMEN PELVIS WITHOUT IV CONTRAST COMPLETED DATE/TME: 09/08/2018 20:57 CLINICAL HISTORY: 63 years, Male, intractible vomiting, renal failure COMPARISON: 05/23/2011 CT TECHNIQUE: 307 Images stored on PACS. All CT scanners at this facility use dose modulation, iterative reconstruction, and/or weight based dosing when appropriate to reduce radiation dose to as low as reasonably achievable (ALARA). [facility]: Dose Right [facility]: CareDose [facility]: Dose Right [facility]: Teradose 4D [facility]: [employer] LIMITATIONS: None. FINDINGS: Limited evaluation of the lung bases shows minor reticulonodular change in the lingula. Osseous structures are grossly intact. The visualized liver, spleen, adrenal glands, pancreas, kidneys are unremarkable. The gallbladder is present. Negative for urinary tract calculus or hydronephrosis. No gross evidence for bowel obstruction. The prostate is mildly enlarged. No free air or free fluid. Normal appendix. Mild atheromatous change IMPRESSION: Negative for urinary tract calculus or hydronephrosis. Minor reticulonodular change in the lingula which may reflect pneumonitis. TECHNICAL DOCUMENTATION: Quality ID # 436: Final reports with documentation of one or more dose reduction techniques (e.g., Automated exposure control, adjustment of the mA and/or kV according to patient size, use of iterative reconstruction technique) copyright 2011 [employer]- All Rights Reserved
[2018-09-08] MEDS ORDERED: NORMAL SALINE 1000 ML 1,000 ML IV PRN (23:27)
[2018-09-08 23:55] LABS: INTERNATIONAL RATION (INR) 1.06; PROTHROMBIN TIME 14.3 SEC (11.4-15.4)
[2018-09-08] MEDS ORDERED: HEPARIN SOD (PORCINE) 5,000 UNIT/ML 1 ML SYRINGE SUBCUT ONE (23:59)
[2018-09-09 00:10] LABS: TROPONIN I < 0.012 ng/mL
[2018-09-09 01:53] LABS: CREATINE KINASE MB 0.49 ng/mL (<4.55)
[2018-09-09 01:54] LABS: TROPONIN I < 0.012 ng/mL
[2018-09-09 03:15] LABS: FREE T4 (FREE THYROXINE) 1.74 ng/dL (0.78-2.19)
[2018-09-09 03:29] LABS: THYROID STIMULATING HORMONE 0.95 uIU/mL (0.47-4.68)
[2018-09-09] MEDS: HEPARIN SOD (PORCINE) 5,000 UNIT/ML 1 ML SYRINGE SUBCUT SCH ×2 (05:34→13:16)
[2018-09-09 07:48] LABS: URINE AMPHETAMINES SCREEN NEGATIVE; URINE BARBITURATES SCREEN NEGATIVE; URINE BENZODIAZEPINES SCREEN NEGATIVE; URINE COCAINE SCREEN NEGATIVE; URINE MARIJUANA (THC) SCREEN NEGATIVE; URINE METHADONE SCREEN NEGATIVE; URINE PHENCYCLIDINE SCREEN NEGATIVE
[2018-09-09 07:56] LABS: ABSOLUTE LYMPHOCYTES (AUTO) 1.8 10^3/uL (0.5-4.7); ABSOLUTE MONOCYTES (AUTO) 0.7 10^3/uL (0.1-1.4); ABSOLUTE NEUT (AUTO) 3.5 10^3/uL (1.7-8.2); BASOPHILS % (AUTO) 0.3 % (0-2); EOSINOPHILS % (AUTO) 0.3 % (0-6); HEMATOCRIT 34.9 % (37.9-51.0); LYMPHOCYTES % (AUTO) 29.4 % (13-45); MEAN CORPUSCULAR HGB CONC 36.4 g/dL (32.0-36.0); MEAN CORPUSCULAR VOLUME 83 fl (80-97); MONOCYTES % (AUTO) 12.1 % (3-13); PLATELET COUNT 129 10^3/uL (150-450); RED BLOOD COUNT 4.24 10^6/uL (4.35-5.55); RED CELL DISTRIBUTION WIDTH 14.2 % (11.5-14.0); SEGMENTED NEUTROPHILS % (AUTO) 57.9 % (42-78); TOTAL CELLS COUNTED % (AUTO) 100 %; WHITE BLOOD COUNT 6.1 10^3/uL (4.0-10.5)
[2018-09-09 08:00] LABS: HEMOGLOBIN 12.7 g/dL (13.5-17.0)
[2018-09-09 08:12] LABS: ALANINE AMINOTRANSFERASE 13 U/L (21-72); ALBUMIN 3.2 g/dL (3.5-5.0); ALKALINE PHOSPHATASE 35 U/L (38-126); ANION GAP 11 (5-19); ASPARTATE AMINO TRANSFERASE 13 U/L (17-59); BILIRUBIN,DIRECT 0.2 mg/dL (0.0-0.4); BILIRUBIN,TOTAL 0.4 mg/dL (0.2-1.3); BLOOD UREA NITROGEN 31 mg/dL (7-20); CARBON DIOXIDE 19 mmol/L (22-30); CHLORIDE 107 mmol/L (98-107); CHOLESTEROL 80.57 mg/dL (0-200); CREATINE KINASE 28 U/L (55-170); GLUCOSE 98 mg/dL (75-110); POTASSIUM 3.3 mmol/L (3.6-5.0); SODIUM 137.2 mmol/L (137-145); TOTAL PROTEIN 5.5 g/dL (6.3-8.2); TRIGLYCERIDES 68 mg/dL (<150)
[2018-09-09 08:23] LABS: DIRECT LDL 43 mg/dL (<100)
[2018-09-09 08:27] LABS: CREATINE KINASE MB 0.59 ng/mL (<4.55)
[2018-09-09 08:34] LABS: TROPONIN I < 0.012 ng/mL
[2018-09-09] MEDS ORDERED: (PENDING PHARMACY ID) (Clonazepam [Klonopin] 0.5 MG) PO PRN (11:21)
[2018-09-09] MEDS ORDERED: CLONAZEPAM 1 MG TABLET PO PRN (11:24)
[2018-09-09] MEDS ORDERED: POTASSIUM CHLORIDE 10 MEQ CAPSULE.ER PO ONE (12:41)
[2018-09-09] MEDS ORDERED: LISINOPRIL 5 MG TABLET PO SCH (13:00)
--- NOTE | 2018-09-09 14:16 | RADIOLOGY REPORT (SQ) ---
EXAM DESCRIPTION: CT ABD/PELVIS WITH IV ONLY COMPLETED DATE/TIME: 09/09/2018 1:50 pm REASON FOR STUDY: abdominal pain COMPARISON: Noncontrast CT abdomen and pelvis 09/08/2018. CT abdomen and pelvis 05/31/2011. TECHNIQUE: CT scan of the abdomen and pelvis performed using helical scanning technique with dynamic intravenous contrast injection. No oral contrast. Images reviewed with lung, soft tissue, and bone windows. Reconstructed coronal and sagittal MPR images reviewed. Delayed images for evaluation of the urinary system also acquired. All images stored on PACS. All CT scanners at this facility use dose modulation, iterative reconstruction, and/or weight based d osing when appropriate to reduce radiation dose to as low as reasonably achievable (ALARA). [facility]: Dose Right [facility]: CareDose [facility]: Dose Right [facility]: Teradose 4D [facility]: [employer] CONTRAST TYPE AND DOSE: contrast/concentration: Isovue 350.00 mg/ml; Total Contrast Delivered: 89.0 ml; Total Saline Delivered: 70.0 ml RENAL FUNCTION: Creatinine 1.20 RADIATION DOSE: CT Rad equipment meets quality standard of care and radiation dose reduction techniq ues were employed. CTDIvol: 8.8 - 12.3 mGy. DLP: 1155 mGy-cm.. LIMITATIONS: None. FINDINGS: LOWER CHEST: Partially visualized airspace opacities at the lingula. No pleural effusion. LIVER: Subcentimeter low-attenuation density at the hepatic dome (axial image 6/98), too small to be adequately characterized. SPLEEN: Normal size. PANCREAS: No significant calcifications. No adjacent inflammation or peripancreatic fluid collections . Pancreatic duct not dilated. GALLBLADDER: No identified stones by CT criteria. No inflammatory changes to suggest cholecystitis. ADRENAL GLANDS: No significant masses or asymmetry. RIGHT KIDNEY AND URETER: No significant calcifications. No hydronephrosis or hydroureter. LEFT KIDNEY AND URETER: No significant calcifications. No hydronephrosis or hydroureter. AORTA AND VESSELS: No abdominal aortic aneurysm. RETROPERITONEUM: No retroperitoneal adenopathy, hemorrhage or masses. BOWEL AND PERITONEAL CAVITY: No dilated bowel loops or inflammatory changes. No free fluid or free ai r. APPENDIX: Normal. PELVIS: No mass. No free fluid. The urinary bladder is distended. ABDOMINAL WALL: No hernias. BONES: Degenerative changes at the spine. IMPRESSION: 1. Partially visualized airspace opacities at the lingula, may be secondary to pneumoni a. 2. No acute findings within the abdomen or pelvis. TECHNICAL DOCUMENTATION: JOB ID: [id number] AR- Quality ID # 436: Final reports with documentation of one or more dose reduction techniques (e.g., Au tomated exposure control, adjustment of the mA and/or kV according to patient size, use of iterative reconstruction technique) 2010 [employer]- All Rights Reserved Reading location - IP/workstation name: [email or web address]
--- NOTE | 2018-09-09 14:41 | PDOC H&P ---
History of Present Illness Admission Date/PCP: 09/08/18 23:13 GAGAN PINEDO PA-C History of Present Illness: KEYA SOSA is a 63 year old male he came emergency room for evaluation of ab dominal pain and vomiting, he has a history of schizophrenia, type 2 diabetes mellitus in the ER CT scan of the abdomen and pelvis without contrast was obtained, it was negative blood work revealed a serum creatinine 2.40, because of the azotemia which is probably due to dehydration from vomiting ER physician felt patient needed to be admitted for management Past Medical History Cardiac Medical History: Reports: Hypertension Denies: Myocardial Infarction Neurological Medical History: Reports: Seizures Endocrine Medical History: Reports: Diabetes Mellitus Type 2 Musculoskeltal Medical History: Reports: Arthritis Hematology: Denies: Anemia, Sickle Cell Disease Past Surgical History Past Surgical History: Reports: Orthopedic Surgery - R hand Denies: Pacemaker Social History Lives with: Family Smoking Status: Never Smoker Frequency of Alcohol Use: None Hx Recreational Drug Use: No Hx Prescription Drug Abuse: No - Advance Directive Resuscitation Status: Full Code Family History Family History: Reviewed & Not Pertinent Parental Family History Reviewed: Yes Children Family History Reviewed: Yes Sibling(s) Family History Reviewed.: Yes Medication/Allergy Home Medications: Lisinopril [Prinivil 5 mg Tablet] 5 mg PO DAILY 05/31/11 Benztropine Mesylate 1 mg PO Q12 05/27/13 Topiramate 150 mg PO Q12 11/15/17 Clonazepam [Klonopin] 0.5 mg PO DAILYP PRN 09/09/18 Clotrimazole/Betamethasone Dip [Lotrisone Cream 15 gm] 1 applic TP BID 09/09/18 Divalproex Sodium [Depakote ER 500 mg Tab.sr] 500 mg PO Q12 09/09/18 Linaclotide [Linzess] 72 mcg PO QAM 09/09/18 Montelukast Sodium [Singulair 10 mg Tablet] 10 mg PO QHS 09/09/18 Risperidone Microspheres [Risperdal Consta Inj 50 Mg/2 Ml Disp.Syrin] 50 mg IM [id number] 09/09/18 Allergies/Adverse Reactions: No Known Allergies Allergy (Verified 09/08/18 17:28) Review of Systems Constitutional: ABSENT: chills, fever(s), headache(s), weight gain, weight loss Eyes: ABSENT: visual disturbances Ears: ABSENT: hearing changes Cardiovascular: ABSENT: chest pain, dyspnea on exertion, edema, orthropnea, palpitations Respiratory: ABSENT: cough, hemoptysis Gastrointestinal: PRESENT: abdominal pain, vomiting. ABSENT: constipation, diarrhea, hematemesis, hematochezia, nausea Genitourinary: ABSENT: dysuria, hematuria Musculoskeletal: ABSENT: joint swelling Integumentary: ABSENT: rash, wounds Neurological: ABSENT: abnormal gait, abnormal speech, confusion, dizziness, focal weakness, syncope Psychiatric: ABSENT: anxiety, depression, homidical ideation, suicidal ideation Endocrine: ABSENT: cold intolerance, heat intolerance, menstrual abnormalities, polydipsia, polyuria Hematologic/Lymphatic: ABSENT: easy bleeding, easy bruising, lymphadenopathy Physical Exam Vital Signs: Temp Pulse Resp BP Pulse Ox 97.9 F 98 18 102/80 100 09/09/18 12:40 09/09/18 12:40 09/09/18 12:40 09/09/18 12:40 09/09/18 12:40 Intake & Output 09/08/18 09/09/18 09/10/18 06:59 06:59 07:59 Intake Total 2372 Balance 2372 Weight 78.3 kg General appearance: PRESENT: no acute distress, well-developed, well-nourished Head exam: PRESENT: atraumatic, normocephalic Eye exam: PRESENT: conjunctiva pink, EOMI, PERRLA Ear exam: PRESENT: normal external ear exam Mouth exam: PRESENT: moist, tongue midline Neck exam: PRESENT: full ROM Respiratory exam: PRESENT: clear to auscultation crystal Cardiovascular exam: PRESENT: RRR, +S1, +S2 Pulses: PRESENT: normal dorsalis pedis pul, +2 pedal pulses bilateral Vascular exam: PRESENT: normal capillary refill GI/Abdominal exam: PRESENT: normal bowel sounds, soft Rectal exam: PRESENT: deferred Neurological exam: PRESENT: alert, awake, oriented to person, oriented to place, oriented to time, oriented to situation, CN II-XII grossly intact Psychiatric exam: PRESENT: appropriate affect, normal mood Skin exam: PRESENT: dry, intact, warm Results Laboratory Results: 09/09/18 07:01 09/09/18 07:01 09/08/18 09/08/18 09/08/18 19:01 19:01 19:01 WBC 7.3 RBC 5.09 Hgb 15.1 Hct 42.8 MCV 84 MCH 29.8 MCHC 35.4 RDW 14.5 H Plt Count 160 Seg Neutrophils % 58.2 Lymphocytes % 30.5 Monocytes % 10.8 Eosinophils % 0.1 Basophils % 0.4 Absolute Neutrophils 4.2 Absolute Lymphocytes 2.2 Absolute Monocytes 0.8 Absolute Eosinophils 0.0 Absolute Basophils 0.0 Sodium 137.9 Potassium 3.7 Chloride 103 Carbon Dioxide 17 L Anion Gap 18 BUN 48 H Creatinine 2.42 H Est GFR ( Amer) 33 L Est GFR (Non-Af Amer) 27 L Glucose 139 H Calcium 9.9 Total Bilirubin 0.5 AST 14 L ALT 10 L Alkaline Phosphatase 39 Total Protein 7.1 Albumin 4.6 Triglycerides Cholesterol LDL Cholesterol Direct VLDL Cholesterol HDL Cholesterol Amylase 55 Lipase 158.5 Cancelled TSH Free T4 Urine Color Urine Appearance Urine pH Ur Specific [place] Urine Protein Urine Glucose (UA) Urine Ketones Urine Blood Urine Nitrite Ur Leukocyte Esterase Urine WBC (Auto) Urine RBC (Auto) 09/08/18 09/08/18 09/09/18 19:01 21:15 07:01 WBC RBC Hgb Hct MCV MCH MCHC RDW Plt Count Seg Neutrophils % Lymphocytes % Monocytes % Eosinophils % Basophils % Absolute Neutrophils Absolute Lymphocytes Absolute Monocytes Absolute Eosinophils Absolute Basophils Sodium 137.2 Potassium 3.3 L Chloride 107 Carbon Dioxide 19 L Anion Gap 11 BUN 31 H Creatinine 1.20 Est GFR ( Amer) > 60 Est GFR (Non-Af Amer) > 60 Glucose 98 Calcium 9.0 Total Bilirubin 0.4 AST 13 L ALT 13 L Alkaline Phosphatase 35 L Total Protein 5.5 L Albumin 3.2 L Triglycerides 68 Cholesterol 80.57 LDL Cholesterol Direct 43 VLDL Cholesterol 14.0 HDL Cholesterol 33 L Amylase Lipase TSH 0.95 Free T4 1.74 Urine Color YELLOW Urine Appearance CLEAR Urine pH 5.0 Ur Specific [place] 1.018 Urine Protein NEGATIVE Urine Glucose (UA) NEGATIVE Urine Ketones NEGATIVE Urine Blood NEGATIVE Urine Nitrite NEGATIVE Ur Leukocyte Esterase NEGATIVE Urine WBC (Auto) 3 Urine RBC (Auto) 1 09/09/18 07:01 WBC 6.1 RBC 4.24 L Hgb 12.7 L D Hct 34.9 L MCV 83 MCH 30.0 MCHC 36.4 H RDW 14.2 H Plt Count 129 L Seg Neutrophils % 57.9 Lymphocytes % 29.4 Monocytes % 12.1 Eosinophils % 0.3 Basophils % 0.3 Absolute Neutrophils 3.5 Absolute Lymphocytes 1.8 Absolute Monocytes 0.7 Absolute Eosinophils 0.0 Absolute Basophils 0.0 Sodium Potassium Chloride Carbon Dioxide Anion Gap BUN Creatinine Est GFR ( Amer) Est GFR (Non-Af Amer) Glucose Calcium Total Bilirubin AST ALT Alkaline Phosphatase Total Protein Albumin Triglycerides Cholesterol LDL Cholesterol Direct VLDL Cholesterol HDL Cholesterol Amylase Lipase TSH Free T4 Urine Color Urine Appearance Urine pH Ur Specific [place] Urine Protein Urine Glucose (UA) Urine Ketones Urine Blood Urine Nitrite Ur Leukocyte Esterase Urine WBC (Auto) Urine RBC (Auto) 09/08/18 09/08/18 09/09/18 19:01 19:01 01:05 Creatine Kinase 39 L 29 L CK-MB (CK-2) 0.60 Troponin I < 0.012 09/09/18 09/09/18 09/09/18 01:05 07:01 07:01 Creatine Kinase 28 L CK-MB (CK-2) 0.49 0.59 Troponin I < 0.012 < 0.012 Impressions: Chest X-Ray 09/08/18 18:09 IMPRESSION: Increased markings in the lingula, possible developing infiltrate versus subsegmental atelectasis. No dense consolidation or pleural effusion. Abdomen/Pelvis CT 09/09/18 00:00 IMPRESSION: 1. Partially visualized airspace opacities at the lingula, may be secondary to pneumonia. 2. No acute findings within the abdomen or pelvis. Assessment & Plan - Diagnosis (1) Acute kidney injury Is this a current diagnosis for this admission?: Yes Plan: This most likely prerenal azotemia (2) Lingular pneumonia Is this a current diagnosis for this admission?: Yes Plan: CT scan suggests lingular pneumonia but he has no respiratory symptoms (3) Abdominal pain Qualifiers: Abdominal location: unspecified location Qualified Code(s): R10.9 - Unspecified abdominal pain Is this a current diagnosis for this admission?: Yes
[2018-09-09] MEDS ORDERED: AZITHROMYCIN 250 MG TABLET PO ONE (14:44)
--- NOTE | 2018-09-09 14:46 | PDOC DISCHARGE SUMMARY ---
General - Admit/Disc Date/PCP Admission Date/Primary Care Provider: 09/08/18 23:13 GAGAN PINEDO PA-C Discharge Date: 09/09/18 - Discharge Diagnosis (1) Acute kidney injury Is this a current diagnosis for this admission?: Yes (2) Lingular pneumonia Is this a current diagnosis for this admission?: Yes (3) Abdominal pain Is this a current diagnosis for this admission?: Yes - Additional Information Resuscitation Status: Full Code Prescriptions: Azithromycin [Zithromax] 250 mg PO DAILY #7 tablet Home Medications: Lisinopril [Prinivil 5 mg Tablet] 5 mg PO DAILY 05/31/11 Benztropine Mesylate 1 mg PO Q12 05/27/13 Topiramate 150 mg PO Q12 11/15/17 Azithromycin [Zithromax] 250 mg PO DAILY #7 tablet 09/09/18 Clonazepam [Klonopin] 0.5 mg PO DAILYP PRN 09/09/18 Clotrimazole/Betamethasone Dip [Lotrisone Cream 15 gm] 1 applic TP BID 09/09/18 Divalproex Sodium [Depakote ER 500 mg Tab.sr] 500 mg PO Q12 09/09/18 Linaclotide [Linzess] 72 mcg PO QAM 09/09/18 Montelukast Sodium [Singulair 10 mg Tablet] 10 mg PO QHS 09/09/18 Risperidone Microspheres [Risperdal Consta Inj 50 mg/2 ml Disp.syrin] 50 mg IM [id number] 09/09/18 History of Present Illness History of Present Illness: KEYA SOSA is a 63 year old male he came emergency room for evaluation of abdominal pain and vomiting, he has a history of schizophrenia, type 2 diabetes mellitus in the ER CT scan of the abdomen and pelvis without contrast was obtained, it was negative blood work revealed a serum creatinine 2.40, because of the azotemia which is probably due to dehydration from vomiting ER physician felt patient needed to be admitted for management Hospital Course Hospital Course: Patient was admitted for the management of dehydration, acute kidney injury and lingular pneumonia. He was treated with normal saline intravenously with complete normalization of serum creatinine, CT scan of the abdomen and pelvis with IV contrast was obtained, it was negative for any acute pathology. The CAT scan suggested lingular pneumonia but patient has no respiratory symptoms, there was no explanation for the abdominal pain on the basis of the CAT scan, patient is stable to be discharged home today. He was given p.o. azithromycin Physical Exam Vital Signs: Temp Pulse Resp BP Pulse Ox 97.9 F 98 18 102/80 100 09/09/18 12:40 09/09/18 12:40 09/09/18 12:40 09/09/18 12:40 09/09/18 12:40 Intake & Output 09/08/18 09/09/18 09/10/18 06:59 06:59 07:59 Intake Total 2372 Balance 2372 Weight 78.3 kg General appearance: PRESENT: no acute distress, well-developed, well-nourished Head exam: PRESENT: atraumatic, normocephalic Eye exam: PRESENT: conjunctiva pink, EOMI, PERRLA Ear exam: PRESENT: normal external ear exam Mouth exam: PRESENT: moist, tongue midline Neck exam: PRESENT: full ROM Respiratory exam: PRESENT: clear to auscultation crystal Cardiovascular exam: PRESENT: RRR, +S1, +S2 Pulses: PRESENT: normal dorsalis pedis pul, +2 pedal pulses bilateral Vascular exam: PRESENT: normal capillary refill GI/Abdominal exam: PRESENT: normal bowel sounds, soft Rectal exam: PRESENT: deferred Neurological exam: PRESENT: alert, awake, oriented to person, oriented to place, oriented to time, oriented to situation, CN II-XII grossly intact Psychiatric exam: PRESENT: appropriate affect, normal mood Skin exam: PRESENT: dry, intact, warm Results Laboratory Results: 09/09/18 07:01 09/09/18 07:01 09/08/18 09/08/18 09/08/18 19:01 19:01 19:01 WBC 7.3 RBC 5.09 Hgb 15.1 Hct 42.8 MCV 84 MCH 29.8 MCHC 35.4 RDW 14.5 H Plt Count 160 Seg Neutrophils % 58.2 Lymphocytes % 30.5 Monocytes % 10.8 Eosinophils % 0.1 Basophils % 0.4 Absolute Neutrophils 4.2 Absolute Lymphocytes 2.2 Absolute Monocytes 0.8 Absolute Eosinophils 0.0 Absolute Basophils 0.0 Sodium 137.9 Potassium 3.7 Chloride 103 Carbon Dioxide 17 L Anion Gap 18 BUN 48 H Creatinine 2.42 H Est GFR ( Amer) 33 L Est GFR (Non-Af Amer) 27 L Glucose 139 H Calcium 9.9 Total Bilirubin 0.5 AST 14 L ALT 10 L Alkaline Phosphatase 39 Total Protein 7.1 Albumin 4.6 Triglycerides Cholesterol LDL Cholesterol Direct VLDL Cholesterol HDL Cholesterol Amylase 55 Lipase 158.5 Cancelled TSH Free T4 Urine Color Urine Appearance Urine pH Ur Specific [place] Urine Protein Urine Glucose (UA) Urine Ketones Urine Blood Urine Nitrite Ur Leukocyte Esterase Urine WBC (Auto) Urine RBC (Auto) 09/08/18 09/08/18 09/09/18 19:01 21:15 07:01 WBC RBC Hgb Hct MCV MCH MCHC RDW Plt Count Seg Neutrophils % Lymphocytes % Monocytes % Eosinophils % Basophils % Absolute Neutrophils Absolute Lymphocytes Absolute Monocytes Absolute Eosinophils Absolute Basophils Sodium 137.2 Potassium 3.3 L Chloride 107 Carbon Dioxide 19 L Anion Gap 11 BUN 31 H Creatinine 1.20 Est GFR ( Amer) > 60 Est GFR (Non-Af Amer) > 60 Glucose 98 Calcium 9.0 Total Bilirubin 0.4 AST 13 L ALT 13 L Alkaline Phosphatase 35 L Total Protein 5.5 L Albumin 3.2 L Triglycerides 68 Cholesterol 80.57 LDL Cholesterol Direct 43 VLDL Cholesterol 14.0 HDL Cholesterol 33 L Amylase Lipase TSH 0.95 Free T4 1.74 Urine Color YELLOW Urine Appearance CLEAR Urine pH 5.0 Ur Specific [place] 1.018 Urine Protein NEGATIVE Urine Glucose (UA) NEGATIVE Urine Ketones NEGATIVE Urine Blood NEGATIVE Urine Nitrite NEGATIVE Ur Leukocyte Esterase NEGATIVE Urine WBC (Auto) 3 Urine RBC (Auto) 1 09/09/18 07:01 WBC 6.1 RBC 4.24 L Hgb 12.7 L D Hct 34.9 L MCV 83 MCH 30.0 MCHC 36.4 H RDW 14.2 H Plt Count 129 L Seg Neutrophils % 57.9 Lymphocytes % 29.4 Monocytes % 12.1 Eosinophils % 0.3 Basophils % 0.3 Absolute Neutrophils 3.5 Absolute Lymphocytes 1.8 Absolute Monocytes 0.7 Absolute Eosinophils 0.0 Absolute Basophils 0.0 Sodium Potassium Chloride Carbon Dioxide Anion Gap BUN Creatinine Est GFR ( Amer) Est GFR (Non-Af Amer) Glucose Calcium Total Bilirubin AST ALT Alkaline Phosphatase Total Protein Albumin Triglycerides Cholesterol LDL Cholesterol Direct VLDL Cholesterol HDL Cholesterol Amylase Lipase TSH Free T4 Urine Color Urine Appearance Urine pH Ur Specific [place] Urine Protein Urine Glucose (UA) Urine Ketones Urine Blood Urine Nitrite Ur Leukocyte Esterase Urine WBC (Auto) Urine RBC (Auto) 03/02/1909/08/18 09/09/18 19:01 19:01 01:05 Creatine Kinase 39 L 29 L CK-MB (CK-2) 0.60 Troponin I < 0.012 09/09/18 09/09/18 09/09/18 01:05 07:01 07:01 Creatine Kinase 28 L CK-MB (CK-2) 0.49 0.59 Troponin I < 0.012 < 0.012 Impressions: Chest X-Ray 09/08/18 18:09 IMPRESSION: Increased markings in the lingula, possible developing infiltrate versus subsegmental atelectasis. No dense consolidation or pleural effusion. Abdomen/Pelvis CT 09/09/18 00:00 IMPRESSION: 1. Partially visualized airspace opacities at the lingula, may be secondary to pneumonia. 2. No acute findings within the abdomen or pelvis. Qualifiers - * PATIENT BEING DISCHARGED WITH ANY OF THE FOLLOWING DIAGNOSIS: No
[2018-09-09 17:01] VITALS: BP 110/78
[2018-09-09] MEDS ORDERED: AZITHROMYCIN 250 MG TABLET ONE (17:05)
[2018-09-09] MEDS ORDERED: CLOTRIMAZOLE/BETAMETHASONE DIP CREAM 15 GM TOP SCH (18:00)
[2018-09-09] MEDS ORDERED: DIVALPROEX SODIUM 500 MG TAB.SR.24H PO SCH (22:00)
[2018-09-09] MEDS ORDERED: TOPIRAMATE 100 MG TABLET PO SCH (22:00)
[2018-09-09] MEDS ORDERED: BENZTROPINE MESYLATE 1 MG TABLET PO SCH (22:00)
[2018-09-09] MEDS ORDERED: MONTELUKAST SODIUM 10 MG TABLET PO SCH (22:00)
[2018-09-09] MEDS ORDERED: TOPIRAMATE 150 MG PO SCH (22:00)
[2018-09-10] MEDS ORDERED: (PENDING PHARMACY ID) (Linaclotide [Linzess] 72 MCG) PO SCH (08:00)
[2018-09-14] MEDS ORDERED: RISPERIDONE MICROSPHERES INJ 50 MG/2 ML KIT IM SCH (10:00)
== END 2018-09-09 17:25 | disposition home or self-care (01) ==
LOC: ER 17:26 → EH 23:13 → INTOOBSV 23:13 → 3S 09-09 01:24
PROVIDERS: ADMIT Internal Medicine; ATTEND Internal Medicine
DX: N17.9 Acute kidney failure, unspecified (principal); J18.1 Lobar pneumonia, unspecified organism; R10.9 Unspecified abdominal pain; E86.0 Dehydration; I10 Essential (primary) hypertension; F20.9 Schizophrenia, unspecified; F79 Unspecified intellectual disabilities; R00.0 Tachycardia, unspecified; R56.9 Unspecified convulsions; E11.9 Type 2 diabetes mellitus without complications; Z79.899 Other long term (current) drug therapy
CPT/HCPCS: 99285; 96361; 51701; 96375; 96365; 36415 ×2; 87040; 87086; 84439; 82553 ×2; 82962; 82150; 82550 ×2; 83690; 84443; 85025 ×2; 85610; 80076; 80048; 80053; 81001; 84484 ×2; 80307; 83036; 80061; 71046; 74176; 74177; G0378 ×3; J1644; A9270 ×4; J2405; J7030 ×2; J7120; J1956

== ENCOUNTER 2019-04-11 04:57 | Emergency (ER) | payer MEDICARE, OTHER, MEDICAID ==
[2019-04-11] MEDS ORDERED: ASPIRIN 81 MG TABLET, CHEWABLE PO ONE (05:29)
--- NOTE | 2019-04-11 05:32 | ER Document Report ---
ED Medical Screen (RME) - General Chief Complaint: Chest Pain Stated Complaint: SLOW HEART RATE Time Seen by Provider: 04/11/19 05:24 Primary Care Provider: GAGAN PINEDO PA-C [Primary Care Provider] - Follow up as needed Notes: 63-year-old male with a history of seizures and schizophrenia currently medicated for both with chief complaint of "the feeling that my heart was going to stop". He states he put on Vicks VapoRub because his nose was stopped up and he suddenly became concerned that his heart was going to stop, he states he got a weird sensation over his chest. He denies dizziness, cough, fever, nausea, vomiting, or current complaints. He denies any cardiac history. Patient is very hard of hearing, speaks some Macedonian, his brother is here with him to help. He lives with his brother. TRAVEL OUTSIDE OF THE [place] IN LAST 30 DAYS: No - Related Data Allergies/Adverse Reactions: No Known Allergies Allergy (Verified 04/11/19 05:14) Past Medical History - Social History Chew tobacco use (# tins/day): No Frequency of alcohol use: None Drug Abuse: None - Past Medical History Cardiac Medical History: Reports: Hx Hypertension Denies: Hx Heart Attack Pulmonary Medical History: Denies: Hx Asthma Neurological Medical History: Reports: Hx Seizures. Denies: Hx Cerebrovascular Accident Endocrine Medical History: Reports: Hx Diabetes Mellitus Type 2 Renal/ Medical History: Denies: Hx Peritoneal Dialysis GI Medical History: Denies: Hx Hepatitis, Hx Hiatal Hernia, Hx Ulcer Musculoskeltal Medical History: Reports Hx Arthritis Psychiatric Medical History: Reports: Hx Schizophrenia Infectious Medical History: Denies: Hx Hepatitis Past Surgical History: Reports: Hx Orthopedic Surgery - R hand. Denies: Hx Open Heart Surgery, Hx Pacemaker - Immunizations Hx Diphtheria, Pertussis, Tetanus Vaccination: - unknown Physical Exam - Vital signs Vitals: Temp Pulse Resp BP Pulse Ox 97.6 F 110 H 20 132/75 H 100 04/11/19 05:03 04/11/19 05:03 04/11/19 05:03 04/11/19 05:03 04/11/19 05:03 Course - Re-evaluation Re-evalutation: Brother states that approximately once a year patient makes very weird complaints, comes to hang out and socialize and get checked out, never has had anything wrong the past several times. Work-up initiated because of patient's complaint, patient with no current complaints however. I have greeted and performed a rapid initial assessment of this patient. A comprehensive ED assessment and evaluation of the patient, analysis of test results and completion of the medical decision making process will be conducted by additional ED providers. - Vital Signs Vital signs: Temp Pulse Resp BP Pulse Ox 97.6 F 110 H 20 132/75 H 100 04/11/19 05:03 04/11/19 05:03 04/11/19 05:03 04/11/19 05:03 04/11/19 05:03 Doctor's Discharge - Discharge Referrals: GAGAN PINEDO PA-C [Primary Care Provider] - Follow up as needed
[2019-04-11 05:49] LABS: ABSOLUTE LYMPHOCYTES (AUTO) 1.2 10^3/uL (0.5-4.7); ABSOLUTE MONOCYTES (AUTO) 0.4 10^3/uL (0.1-1.4); ABSOLUTE NEUT (AUTO) 2.5 10^3/uL (1.7-8.2); EOSINOPHILS % (AUTO) 0.8 % (0-6); HEMATOCRIT 41.7 % (37.9-51.0); HEMOGLOBIN 14.6 g/dL (13.5-17.0); MEAN CORPUSCULAR HGB CONC 35.1 g/dL (32.0-36.0); MEAN CORPUSCULAR VOLUME 85 fl (80-97); MONOCYTES % (AUTO) 9.4 % (3-13); PLATELET COUNT 140 10^3/uL (150-450); RED BLOOD COUNT 4.88 10^6/uL (4.35-5.55); RED CELL DISTRIBUTION WIDTH 13.8 % (11.5-14.0); SEGMENTED NEUTROPHILS % (AUTO) 60.8 % (42-78); TOTAL CELLS COUNTED % (AUTO) 100 %; WHITE BLOOD COUNT 4.2 10^3/uL (4.0-10.5)
--- NOTE | 2019-04-11 06:27 | RADIOLOGY REPORT (SQ) ---
EXAM DESCRIPTION: XR CHEST 1 VIEW COMPLETED DATE/TME: 04/11/2019 05:30 CLINICAL HISTORY: 63 years, Male, chest pain COMPARISON: 09/08/2018 NUMBER OF VIEWS: One TECHNIQUE: AP view of the chest LIMITATIONS: None. FINDINGS: The lungs are clear. The heart is normal in size. There is no pneumothorax or pleural effusion. There is no acute fracture. IMPRESSION: No acute cardiopulmonary abnormality. copyright 2010 [employer]- All Rights Reserved
[2019-04-11 06:37] LABS: ALKALINE PHOSPHATASE 40 U/L (38-126); ANION GAP 9 (5-19); ASPARTATE AMINO TRANSFERASE 16 U/L (17-59); BILIRUBIN,DIRECT 0.2 mg/dL (0.0-0.4); BILIRUBIN,TOTAL 0.6 mg/dL (0.2-1.3); BLOOD UREA NITROGEN 13 mg/dL (7-20); CALCIUM 9.5 mg/dL (8.4-10.2); CARBON DIOXIDE 23 mmol/L (22-30); CHLORIDE 101 mmol/L (98-107); GLUCOSE 105 mg/dL (75-110); TOTAL PROTEIN 6.8 g/dL (6.3-8.2)
--- NOTE | 2019-04-11 07:51 | EKG REPORT ---
SEVERITY:- ABNORMAL ECG - SINUS RHYTHM BORDERLINE LEFT AXIS DEVIATION NONSPECIFIC T ABNORMALITIES, LATERAL LEADS : Confirmed by: Grzegorz Morrison MD 11-Apr-2019 07:50:43
[2019-04-11] MEDS ORDERED: ACETAMINOPHEN 325 MG TABLET PO ONE (08:21)
[2019-04-11 08:26] VITALS: BP 127/92
--- NOTE | 2019-04-11 17:51 | ER Document Report ---
Entered by CHARLY KIMABLL SCRIBE 04/11/19 0816 Acting as scribe for:ZO BALTAZAR MD ED Cardiac - General Chief Complaint: Chest Pain Stated Complaint: SLOW HEART RATE Time Seen by Provider: 04/11/19 05:24 Primary Care Provider: GAGAN PINEDO PA-C [NO LOCAL MD] - Follow up as needed Information source: Patient Notes: Patient is a 63-year-old male who presents to the emergency department today complaining of a headache. Patient states that he put a "bump" of Vicks vaporub up his nose and developed this headache shortly after. Patient reported to nursing staff that he was here because his chest felt funny, stating he felt like his heart rate was slowing down and felt like it eventually "stopped". Patient is a poor historian so history is limited. TRAVEL OUTSIDE OF THE [place] IN LAST 30 DAYS: No - Related Data Allergies/Adverse Reactions: No Known Allergies Allergy (Verified 04/11/19 05:14) Past Medical History - General Information source: Patient - Social History Smoking Status: Former Smoker Cigarette use (# per day): No Chew tobacco use (# tins/day): No Frequency of alcohol use: None Drug Abuse: None Family History: Reviewed & Not Pertinent Patient has suicidal ideation: No Patient has homicidal ideation: No - Past Medical History Cardiac Medical History: Reports: Hx Hypertension Neurological Medical History: Reports: Hx Seizures Endocrine Medical History: Reports: Hx Diabetes Mellitus Type 2 Musculoskeletal Medical History: Reports Hx Arthritis Psychiatric Medical History: Reports: Hx Schizophrenia Past Surgical History: Reports: Hx Orthopedic Surgery - R hand - Immunizations Hx Diphtheria, Pertussis, Tetanus Vaccination: - unknown Review of Systems - Review of Systems Constitutional: No symptoms reported EENT: No symptoms reported Cardiovascular: See HPI Respiratory: No symptoms reported Gastrointestinal: No symptoms reported Genitourinary: No symptoms reported Male Genitourinary: No symptoms reported Musculoskeletal: No symptoms reported Skin: No symptoms reported Hematologic/Lymphatic: No symptoms reported Neurological/Psychological: See HPI, Headaches -: Yes All other systems reviewed and negative Physical Exam - Vital signs Vitals: Temp Pulse Resp BP Pulse Ox 97.6 F 110 H 20 132/75 H 100 04/11/19 05:03 04/11/19 05:03 04/11/19 05:03 04/11/19 05:03 04/11/19 05:03 - Notes Notes: Physical Exam: General: Alert, appears well. HEENT: Normocephalic. Atraumatic. PERRL. Extraocular movements intact. Oropharynx clear. Neck: Supple. Non-tender. Respiratory: No respiratory distress. Clear and equal breath sounds bilaterally. Cardiovascular: Regular rate and rhythm. Abdominal: Normal Inspection. Non-tender. No distension. Normal Bowel Sounds. Back: No gross abnormalities. Extremities: Moves all four extremities. Upper extremities: Normal inspection. Normal ROM. Lower extremities: Normal inspection. No edema. Normal ROM. Neurological: Normal cognition. AAOx4. Normal speech. Psychological: Normal affect. Normal Mood. Skin: Warm. Dry. Normal color. Course - Vital Signs Vital signs: Temp Pulse Resp BP Pulse Ox 97.6 F 110 H 11 L 127/92 H 99 04/11/19 05:03 04/11/19 05:03 04/11/19 08:01 04/11/19 08:01 04/11/19 08:01 - Laboratory Result Diagrams: 04/11/19 05:34 04/11/19 05:34 Laboratory results interpreted by me: 04/11/19 04/11/19 05:34 05:34 Plt Count 140 L Sodium 133.4 L AST 16 L - Diagnostic Test Radiology reviewed: Image reviewed, Reports reviewed - Chest x-ray does not show acute cardiopulmonary abnormality - EKG Interpretation by Ri EKG shows normal: Sinus rhythm, [place], Intervals, QRS Complexes. abnormal: ST-T Waves - Nonspecific lateral T abnormalities Rate: Normal - 93 Rhythm: NSR [place]/QRS: Left axis deviation - Borderline left axis deviation When compared to previous EKG there are: No significant change Discharge - Discharge Clinical Impression: Tension type headache Qualifiers: Headache chronicity pattern: unspecified pattern Intractability: not intra ctable Qualified Code(s): G44.209 - Tension-type headache, unspecified, not intractable Condition: Stable Disposition: HOME, SELF-CARE Additional Instructions: Tension Headache Your problem has been diagnosed as muscle tension headache. This very common type of headache occurs because of tightness in the muscles of the head and neck. The cause may be neck or jaw joint problems, but most commonly the cause is emotional stress. The headache may last hours or days. The treatment of uncomplicated tension headaches is rest and pain medication. Often, the newer antiinflammatory pain medications are prescribed, as these also decrease the irritability of the painful tissues. Muscle relaxers, cold packs, or warm packs are sometimes helpful. Anti-anxiety medication or narcotics are sometimes needed temporarily, but are best avoided in the long run. Your doctor has evaluated your headache problem, and finds no evidence of a serious health problem as a cause for the headache. If your headache becomes more severe, or if new symptoms develop (such as fever, stiff neck, vomiting, or decreasing alertness) you should be re-examined by the physician. Your physical exam today suggest you have a muscle tension headache. Your EKG showed a normal heart rhythm with no suggestion of conduction disturbances, or rhythm disturbances. Take Tylenol and ibuprofen for your headache as needed. Follow-up with your primary care provider if not improving. RETURN TO THE EMERGENCY ROOM IF ANY NEW OR WORSENING SYMPTOMS. Referrals: GAGAN PINEDO PA-C [NO LOCAL MD] - Follow up as needed Scribe Attestation: 04/11/19 08:17 I personally performed the services described in the documentation, reviewed and edited the documentation which was dictated to the scribe in my presence, and it accurately records my words and actions. I personally performed the services described in the documentation, reviewed and edited the documentation which was dictated to the scribe in my presence, and it accurately records my words and actions.
== END 2019-04-11 08:29 | disposition home or self-care (01) ==
LOC: ER 04:57
DX: G44.209 Tension-type headache, unspecified, not intractable (principal); R07.9 Chest pain, unspecified; E11.9 Type 2 diabetes mellitus without complications
CPT/HCPCS: 93005; 36415; 85025; 80053; 84484; 71045; 93010; A9270 ×2; 99284

== ENCOUNTER 2019-08-17 11:12 | Emergency (ER) | payer MEDICARE, OTHER, MEDICAID ==
[2019-08-17] MEDS ORDERED: ACETAMINOPHEN 325 MG TABLET PO ONE (11:42)
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
[2019-08-17 13:13] LABS: APPEARANCE,URINE SLIGHTLY-CLOUDY; BILIRUBIN,URINE NEGATIVE (NEGATIVE); COLOR,URINE YELLOW; GLUCOSE, URINE NEGATIVE (NEGATIVE); KETONES,URINE NEGATIVE (NEGATIVE); PROTEIN,URINE NEGATIVE (NEGATIVE); URINE SPECIFIC GRAVITY 1.015; UROBILINOGEN,URINE NEGATIVE mg/dL (<2.0)
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
--- NOTE | 2019-08-17 13:52 | RADIOLOGY REPORT (SQ) ---
EXAM DESCRIPTION: RIBS RIGHT W/PA CHEST COMPLETED DATE/TIME: 08/17/2019 12:00 pm REASON FOR STUDY: injury rt flank/ribs, + ecchymosis/abrasion COMPARISON: AP view of the chest from 04/11/2019. TECHNIQUE: Frontal view of the chest and additional views of the right ribs acquired. NUMBER OF VIEWS: Three views. LIMITATIONS: None. FINDINGS: FRONTAL CXR: The cardiomediastinal silhouette and pulmonary vasculature within normal limi ts. There is no consolidation, pleural effusion or pneumothorax. RIBS: Acute nondisplaced fracture of the right 10th rib. OTHER: No other finding. IMPRESSION: Acute nondisplaced fracture of the right 10th rib. There is no associated pneumothorax or other acute cardiopulmonary process. COMMENT: SITE OF TRAUMA/COMPLAINT MARKED/STAMP COMPLETED: NO. TECHNICAL DOCUMENTATION: JOB ID: [id number] 2010 [employer]- All Rights Reserved Reading location - IP/workstation name: [email or web address]
[2019-08-17] MEDS ORDERED: HYDROCODONE/ACETAMINOPHEN 5-325 MG (6 TAB/ER DISP) PO ONE (13:56)
[2019-08-17 14:40] VITALS: BP 119/73
== END 2019-08-17 15:11 | disposition other institution (70) ==
LOC: ER 11:12
DX: S22.31XA Fracture of one rib, right side, initial encounter for closed fracture (principal); R07.81 Pleurodynia; Y04.0XXA Assault by unarmed brawl or fight, initial encounter; I10 Essential (primary) hypertension; E11.9 Type 2 diabetes mellitus without complications
CPT/HCPCS: 81001; 71101; A9270; 99283

== ENCOUNTER 2019-10-11 10:16 | Emergency (ER) | payer MEDICARE, OTHER, MEDICAID ==
--- NOTE | 2019-10-11 10:23 | ER Document Report ---
ED General - General Stated Complaint: CHEST PAIN Time Seen by Provider: 10/11/19 10:23 Primary Care Provider: MARICARMEN ROBLES MD [Primary Care Provider] - Follow up tomorrow TRAVEL OUTSIDE OF THE [place] IN LAST 30 DAYS: No - HPI Notes: 64-year-old male with a history of MR, grand mal seizures and congenital brain issues presents to the emergency room for chest pain and cough x1 day ago. Patient is managed and cared for by his brother who is his primary caregiver who states that it is likely he has allergies he has not really been coughing although he did hurt his rib a while back and states that has been bothering him. Jose also made medical staff aware they can become combative and argum entative at times and he likely will be placed in a care facility however he is staying home and staying with his brother. Patient is a poor historian and unable to follow direction. History has been obtained from his primary caregiver Jose. Per Jose, he denies any fevers chills, nausea vomiting diarrhea, chest pain, shortness of breath rashes, bowel or bladder dysfunction, saddle anesthesia, numbness or tingling bilateral upper extremities when this provider spoke to him on the phone. - Related Data Allergies/Adverse Reactions: No Known Allergies Allergy (Verified 08/17/19 11:37) Past Medical History - General Information source: Patient, Relative - Jose - Social History Smoking Status: Unknown if Ever Smoked Family History: Reviewed & Not Pertinent - Past Medical History Cardiac Medical History: Reports: Hx Hypertension Denies: Hx Heart Attack Pulmonary Medical History: Denies: Hx Asthma Neurological Medical History: Reports: Hx Seizures. Denies: Hx Cerebrovascular Accident Endocrine Medical History: Reports: Hx Diabetes Mellitus Type 2 Renal/ Medical History: Denies: Hx Peritoneal Dialysis GI Medical History: Denies: Hx Hepatitis, Hx Hiatal Hernia, Hx Ulcer Musculoskeletal Medical History: Reports Hx Arthritis Psychiatric Medical History: Reports: Hx Schizophrenia Infectious Medical History: Denies: Hx Hepatitis Past Surgical History: Reports: Hx Orthopedic Surgery - R hand. Denies: Hx Open Heart Surgery, Hx Pacemaker - Immunizations Hx Diphtheria, Pertussis, Tetanus Vaccination: - unknown Review of Systems - Review of Systems Constitutional: See HPI EENT: No symptoms reported Cardiovascular: No symptoms reported Respiratory: No symptoms reported Gastrointestinal: No symptoms reported Genitourinary: No symptoms reported Male Genitourinary: No symptoms reported Musculoskeletal: No symptoms reported Skin: No symptoms reported Hematologic/Lymphatic: No symptoms reported Neurological/Psychological: See HPI Physical Exam - Vital signs Vitals: Temp Pulse Resp BP Pulse Ox 98.3 F 93 16 154/88 H 100 10/11/19 10:17 10/11/19 10:17 10/11/19 10:17 10/11/19 10:17 10/11/19 10:17 - Notes Notes: PHYSICAL EXAMINATION:reviewed vital signs by RN GENERAL: Well-appearing, well-nourished and in no acute distress. HEAD: Atraumatic, normocephalic. EYES: Pupils equal round and reactive to light, extraocular movements intact, sclera anicteric, conjunctiva are normal. ENT: Nares patent, oropharynx clear without exudates. Moist mucous membranes. NECK: Normal range of motion, supple without lymphadenopathy LUNGS: Breath sounds clear to auscultation bilaterally and equal. No wheezes rales or rhonchi. HEART: Regular rate and rhythm without murmurs ABDOMEN: Soft, nontender, nondistended abdomen. No guarding, no rebound. No masses appreciated. Musculoskeletal: Normal range of motion, no pitting or edema. No cyanosis. NEUROLOGICAL: Cranial nerves grossly intact. Normal speech, normal gait. Normal sensory, motor exams PSYCH: Flat affect SKIN: Warm, Dry, normal turgor, no rashes or lesions noted. Course - Re-evaluation Re-evalutation: 10/11/19 18:16 Afebrile vital stable no distress. CBC negative for leukocytosis or anemia, CMP does show a serum sodium of 125. Consulted with Dr. Joan Hall, revising physician who advised doing IV hydration and and fluid restriction and to recheck serum sodium after he finished IV fluids. Discussed sodium sodium with Jose who states that he has been drinking a lot of fluids because that is what he does when he "gets bored". Discussed with brother that he does need to implement fluid restriction, only drinking small amounts with meals, having his serum sodium rechecked with his primary care provider, complete supervision. Jose did agree with this plan of care and found that this was appropriate. On reevaluation of serum sodium, patient refused a blood stick to recheck of sodium he became very argumentative with staff. Consulted with Dr. Hall, who agreed that he could leave AGAINST MEDICAL ADVICE, I did speak with Jose his caregiver who agreed that he can leave AGAINST MEDICAL ADVICE that there is no point trying to fight him for serum sodium because he can become combative understand that he does need need to be under fluid restrictions and will be under constant supervision. Jose felt comfortable with this plan of care. After performing a Medical Screening Examination, I spoke with the patient at length in regards to leaving the hospital against medical advice. I do not believe the patient should leave but the patient is alert oriented x4, understands the risks and benefits of staying and leaving including disability and . Pt understands that he can return at any time for further care and is more than welcome to do so. Pt verbalizes this understanding. - Vital Signs Vital signs: Temp Pulse Resp BP Pulse Ox 97.7 F 93 14 119/74 99 10/11/19 16:18 10/11/19 10:17 10/11/19 15:01 10/11/19 15:01 10/11/19 15:01 - Laboratory Result Diagrams: 10/11/19 10:20 10/11/19 10:20 Laboratory results interpreted by me: 10/11/19 10/11/19 10/11/19 10:20 10:20 14:57 MCHC 36.7 H Plt Count 145 L Sodium 125.0 L Chloride 93 L Carbon Dioxide 20 L Urine Ketones 20 H Urine Blood SMALL H Discharge - Discharge Clinical Impression: Hyponatremia Condition: Stable Disposition: AGAINST MEDICAL ADVICE Instructions: Hyponatremia (OM) Additional Instructions: Hyponatremia You have an abnormally low level of serum sodium, called hyponatremia. Low serum sodium may cause weakness, fatigue, confusion, or even seizures. Usually, low sodium is due to taking diuretics (water pills), combined with drinking too much water. It can also be due to excessive vomiting or diarrhea. If no obvious cause is evident, further evaluation will be necessary. If the hyponatremia results from taking diuretics, it's treated by restricting the amount of water you can drink. If it's due to vomiting and diarrhea, it's treated by drinking liberal amounts of rehydration solution (for example Lytren or Pedialyte). A follow-up blood test is often done to see that the sodium is returning to normal. Call the physician if you have severe weakness, muscle twitching or cramping, palpitations (pounding or irregular heartbeat), confusion, headache, seizures, or any other new or alarming symptoms. Your serum sodium was 125. We did give you a bag of IV fluids but you refused for us to recheck your serum sodium. You do need fluid restrictions, only sipping while eating. Follow-up with your PCP within the next 24 to 48 hours. Return immediately for any new or worsening symptoms. Follow up with primary care provider, call tomorrow to make followup appointment. Referrals: MARICARMEN ROBLES MD [Primary Care Provider] - Follow up tomorrow
--- NOTE | 2019-10-11 11:10 | RADIOLOGY REPORT (SQ) ---
EXAM DESCRIPTION: CHEST SINGLE VIEW IMAGES COMPLETED DATE/TIME: 10/11/2019 10:59 am REASON FOR STUDY: chest pain COMPARISON: 04/11/2019. EXAM PARAMETERS: NUMBER OF VIEWS: One view. TECHNIQUE: Single frontal radiographic view of the chest acquired. RADIATION DOSE: NA LIMITATIONS: None. FINDINGS: LUNGS AND PLEURA: No opacities, masses or pneumothorax. No pleural effusion. MEDIASTINUM AND HILAR STRUCTURES: No masses. Contour normal. HEART AND VASCULAR STRUCTURES: Heart normal in size. Normal vasculature. BONES: No acute findings. HARDWARE: None in the chest. OTHER: No other significant finding. IMPRESSION: NO ACUTE RADIOGRAPHIC FINDING IN THE CHEST. TECHNICAL DOCUMENTATION: JOB ID: [id number] 2010 [employer]- All Rights Reserved Reading location - IP/workstation name: [email or web address]
[2019-10-11 11:11] LABS: ALBUMIN 4.3 g/dL (3.5-5.0); ALKALINE PHOSPHATASE 56 U/L (38-126); ANION GAP 12 (5-19); ASPARTATE AMINO TRANSFERASE 20 U/L (17-59); BILIRUBIN,TOTAL 0.7 mg/dL (0.2-1.3); BLOOD UREA NITROGEN 9 mg/dL (7-20); CALCIUM 9.8 mg/dL (8.4-10.2); CARBON DIOXIDE 20 mmol/L (22-30); CHLORIDE 93 mmol/L (98-107); CREATINE KINASE 120 U/L (55-170); GLUCOSE 94 mg/dL (75-110); POTASSIUM 3.8 mmol/L (3.6-5.0); TOTAL PROTEIN 6.8 g/dL (6.3-8.2)
[2019-10-11 11:14] LABS: ABSOLUTE LYMPHOCYTES (AUTO) 1.4 10^3/uL (0.5-4.7); ABSOLUTE MONOCYTES (AUTO) 0.6 10^3/uL (0.1-1.4); ABSOLUTE NEUT (AUTO) 3.8 10^3/uL (1.7-8.2); BASOPHILS % (AUTO) 0.6 % (0-2); EOSINOPHILS % (AUTO) 0.6 % (0-6); HEMATOCRIT 41.1 % (37.9-51.0); HEMOGLOBIN 15.1 g/dL (13.5-17.0); LYMPHOCYTES % (AUTO) 23.5 % (13-45); MEAN CORPUSCULAR HEMOGLOBIN 30.9 pg (27.0-33.4); MEAN CORPUSCULAR HGB CONC 36.7 g/dL (32.0-36.0); MEAN CORPUSCULAR VOLUME 84 fl (80-97); MONOCYTES % (AUTO) 9.6 % (3-13); PLATELET COUNT 145 10^3/uL (150-450); RED BLOOD COUNT 4.88 10^6/uL (4.35-5.55); RED CELL DISTRIBUTION WIDTH 12.8 % (11.5-14.0); SEGMENTED NEUTROPHILS % (AUTO) 65.7 % (42-78); TOTAL CELLS COUNTED % (AUTO) 100 %; WHITE BLOOD COUNT 5.8 10^3/uL (4.0-10.5)
[2019-10-11 11:22] LABS: CREATINE KINASE MB 2.18 ng/mL (<4.55)
[2019-10-11 11:32] LABS: TROPONIN I < 0.012 ng/mL
[2019-10-11] MEDS ORDERED: NORMAL SALINE 1000 ML 1,000 ML IV ONE (12:07)
[2019-10-11 15:21] LABS: APPEARANCE,URINE CLEAR; BILIRUBIN,URINE NEGATIVE (NEGATIVE); COLOR,URINE STRAW; GLUCOSE, URINE NEGATIVE (NEGATIVE); KETONES,URINE 20 mg/dL (NEGATIVE); LEUKOCYTE ESTERASE,URINE NEGATIVE (NEGATIVE); NITRITE,URINE NEGATIVE (NEGATIVE); PROTEIN,URINE NEGATIVE (NEGATIVE); URINE SPECIFIC GRAVITY 1.004; UROBILINOGEN,URINE NEGATIVE mg/dL (<2.0)
[2019-10-11 16:18] VITALS: BP 119/74
--- NOTE | 2019-10-11 21:24 | EKG REPORT ---
SEVERITY:- OTHERWISE NORMAL ECG - SINUS RHYTHM BORDERLINE LEFT AXIS DEVIATION : Confirmed by: Yasmin Paniagua MD 11-Oct-2019 21:23:04
== END 2019-10-11 16:18 | disposition left against medical advice (07) ==
LOC: ER 10:16
DX: E87.1 Hypo-osmolality and hyponatremia (principal); R07.9 Chest pain, unspecified; G40.909 Epilepsy, unspecified, not intractable, without status epilepticus; R05 Cough; I10 Essential (primary) hypertension; E11.9 Type 2 diabetes mellitus without complications
CPT/HCPCS: 93005; 99285; 96360; 36415; 82553; 82550; 84443; 85025; 80053; 81001; 84484; 71045; 93010; J7030

== ENCOUNTER 2019-10-14 09:39 | Emergency (ER) | payer MEDICARE, OTHER, MEDICAID ==
[2019-10-14 10:45] LABS: ABSOLUTE LYMPHOCYTES (AUTO) 1.5 10^3/uL (0.5-4.7); ABSOLUTE MONOCYTES (AUTO) 0.6 10^3/uL (0.1-1.4); ABSOLUTE NEUT (AUTO) 3.8 10^3/uL (1.7-8.2); BASOPHILS % (AUTO) 0.6 % (0-2); EOSINOPHILS % (AUTO) 0.3 % (0-6); HEMATOCRIT 43.1 % (37.9-51.0); HEMOGLOBIN 15.9 g/dL (13.5-17.0); LYMPHOCYTES % (AUTO) 25.9 % (13-45); MEAN CORPUSCULAR HEMOGLOBIN 31.3 pg (27.0-33.4); MEAN CORPUSCULAR HGB CONC 36.9 g/dL (32.0-36.0); MEAN CORPUSCULAR VOLUME 85 fl (80-97); MONOCYTES % (AUTO) 9.4 % (3-13); PLATELET COUNT 158 10^3/uL (150-450); RED BLOOD COUNT 5.07 10^6/uL (4.35-5.55); RED CELL DISTRIBUTION WIDTH 13.3 % (11.5-14.0); SEGMENTED NEUTROPHILS % (AUTO) 63.8 % (42-78); TOTAL CELLS COUNTED % (AUTO) 100 %
--- NOTE | 2019-10-14 10:50 | RADIOLOGY REPORT (SQ) ---
EXAM DESCRIPTION: CHEST SINGLE VIEW IMAGES COMPLETED DATE/TIME: 10/14/2019 10:30 am REASON FOR STUDY: Shortness of Breath COMPARISON: None. NUMBER OF VIEWS: One view. TECHNIQUE: Single frontal radiographic view of the chest acquired. LIMITATIONS: None. FINDINGS: LUNGS AND PLEURA: No opacities, masses or pneumothorax. No pleural effusion. MEDIASTINUM AND HILAR STRUCTURES: No masses. Contour normal. HEART AND VASCULAR STRUCTURES: Heart normal in size. Normal vasculature. BONES: No acute findings. HARDWARE: None in the chest. OTHER: No other significant finding. IMPRESSION: NO SIGNIFICANT RADIOGRAPHIC FINDING IN THE CHEST. TECHNICAL DOCUMENTATION: JOB ID: [id number] 2010 [employer]- All Rights Reserved Reading location - IP/workstation name: [email or web address]
[2019-10-14 11:00] LABS: ALBUMIN 4.4 g/dL (3.5-5.0); ALKALINE PHOSPHATASE 62 U/L (38-126); ANION GAP 15 (5-19); ASPARTATE AMINO TRANSFERASE 27 U/L (17-59); BILIRUBIN,DIRECT 0.2 mg/dL (0.0-0.4); BILIRUBIN,TOTAL 0.5 mg/dL (0.2-1.3); BLOOD UREA NITROGEN 12 mg/dL (7-20); CALCIUM 9.6 mg/dL (8.4-10.2); CARBON DIOXIDE 19 mmol/L (22-30); CHLORIDE 97 mmol/L (98-107); GLUCOSE 96 mg/dL (75-110); POTASSIUM 3.5 mmol/L (3.6-5.0); TOTAL PROTEIN 7.1 g/dL (6.3-8.2)
--- NOTE | 2019-10-14 14:34 | ER Document Report ---
Entered by ARIANNE RESENDIZ SCRIBE 10/14/19 [id number] Acting as scribe for:RAJ CHOW MD ED General - General Chief Complaint: Shortness Of Breath Stated Complaint: SHORTNESS OF BREATH Time Seen by Provider: 10/14/19 10:52 Primary Care Provider: MARICARMEN ROBLES MD [Primary Care Provider] - Follow up as needed Information source: Patient Notes: This 64 year old male patient presents to the emergency department today with complaints of "feeling like I'm dying". Patient keeps repeating this and cannot tell the reason for feeling this way. Patient's initial complaint when he was screened was shortness of breath. Patient states he also has some chest wall pain on his right side. Patient visited the ED x2 days ago for chest pain and was discharged. TRAVEL OUTSIDE OF THE [place] IN LAST 30 DAYS: No - Related Data Allergies/Adverse Reactions: No Known Allergies Allergy (Verified 08/17/19 11:37) Past Medical History - General Information source: Patient - Social History Smoking Status: Unknown if Ever Smoked Family History: Reviewed & Not Pertinent Patient has suicidal ideation: No Patient has homicidal ideation: No - Past Medical History Cardiac Medical History: Reports: Hx Hypertension Neurological Medical History: Reports: Hx Seizures Endocrine Medical History: Reports: Hx Diabetes Mellitus Type 2 Musculoskeletal Medical History: Reports Hx Arthritis Psychiatric Medical History: Reports: Hx Schizophrenia Past Surgical History: Reports: Hx Orthopedic Surgery - R hand - Immunizations Hx Diphtheria, Pertussis, Tetanus Vaccination: - unknown Review of Systems - Review of Systems Constitutional: See HPI EENT: No symptoms reported Cardiovascular: See HPI Respiratory: See HPI Gastrointestinal: No symptoms reported Genitourinary: No symptoms reported Male Genitourinary: No symptoms reported Musculoskeletal: No symptoms reported Skin: No symptoms reported Hematologic/Lymphatic: No symptoms reported Neurological/Psychological: See HPI -: Yes All other systems reviewed and negative Physical Exam - Vital signs Vitals: Temp Pulse Resp BP Pulse Ox 97.3 F 108 H 11 L 155/85 H 98 10/14/19 09:39 10/14/19 09:39 10/14/19 09:39 10/14/19 09:39 10/14/19 09:39 - General General appearance: Appears well, Alert - HEENT Head: Normocephalic, Atraumatic Eyes: Normal Pupils: PERRL - Respiratory Respiratory status: No respiratory distress Chest status: Nontender Breath sounds: Normal Chest palpation: Normal - Cardiovascular Rhythm: Regular Heart sounds: Normal auscultation Murmur: No - Abdominal Inspection: Normal Distension: No distension Bowel sounds: Normal Tenderness: Nontender Organomegaly: No organomegaly - Extremities General upper extremity: Normal inspection. No: Edema General lower extremity: Normal inspection. No: Edema - Neurological Neuro grossly intact: Yes Cognition: Normal Orientation: AAOx4 - Psychological Associated symptoms: Normal affect, Normal mood - Skin Skin Temperature: Warm Skin Moisture: Dry Skin Color: Normal Course - Re-evaluation Re-evalutation: 10/14/19 14:27 Patient resting comfortably not showing any signs of distress. Patient reports that he is dying but there is no evidence that that is imminent at this time. Patient is not stating that he has any suicidal ideation. Patient is just generally weak and not eating much in the past several days. Patient lives with his brother who is brought into the emergency room twice in the last 4days to determine if patient has any organic reason for his believe that he is dying. Thus far we have not found an acute case of any significant metabolic or cardio vascular problems. - Vital Signs Vital signs: Temp Pulse Resp BP Pulse Ox 97.3 F 100 10 L 141/89 H 100 10/14/19 09:39 10/14/19 12:14 10/14/19 12:14 10/14/19 12:14 10/14/19 12:14 - Laboratory Result Diagrams: 10/14/19 10:02 10/14/19 10:02 Laboratory results interpreted by me: 10/14/19 10/14/19 10:02 10:02 MCHC 36.9 H Sodium 130.7 L Potassium 3.5 L Chloride 97 L Carbon Dioxide 19 L 10/14/19 14:28 No acute process except a CO2 of 19. 10/14/19 14:29 On 10/10/2019 CO2 was 20. - Diagnostic Test Radiology reviewed: Image reviewed, Reports reviewed Radiology results interpreted by me: 10/14/19 14:29 Chest x-ray shows no acute process - EKG Interpretation by Me Additional EKG results interpreted by me: 10/14/19 14:32 Twelve-lead EKG shows sinus tach 105 left axis deviation no acute ST-T wave changes. Discharge - Discharge Clinical Impression: Atypical chest pain Condition: Stable Disposition: HOME, SELF-CARE Additional Instructions: Chest Wall Pain Your chest pain has been diagnosed as coming from the chest wall. This is often caused by straining the muscles or joints in the chest during physical activity, direct trauma, coughing, or vigorous vomiting. Persons with arthritis are especially prone to this type of pain, due to inflammation of the cartilage joints near the breast bone. Occasionally, no cause can be found. Rest from strenuous physical activity. This kind of chest pain is usually made worse by movement of the chest. Depending on the symptoms, we may prescribe medicine for pain, muscle relaxation, and antiinflammatory effects. If the pain is new, and seems to be due to muscle strain, cold packs can help. Otherwise, apply gentle warmth to the painful area for 15 minutes every hour or two. You should contact the doctor immediately if things change. Further evaluation is needed if you develop a fever or cough, if the nature of the pain changes, or if you become short of breath. Referrals: MARICARMEN ROBLES MD [Primary Care Provider] - Follow up as needed I personally performed the services described in the documentation, reviewed and edited the documentation which was dictated to the scribe in my presence, and it accurately records my words and actions.
[2019-10-14 14:37] VITALS: BP 125/92
--- NOTE | 2019-10-14 22:29 | EKG REPORT ---
SEVERITY:- OTHERWISE NORMAL ECG - SINUS TACHYCARDIA LEFT AXIS DEVIATION : Confirmed by: Yasmin Paniagua MD 14-Oct-2019 22:29:11
== END 2019-10-14 14:39 | disposition home or self-care (01) ==
LOC: ER 09:39
DX: R07.89 Other chest pain (principal); R06.02 Shortness of breath; R00.0 Tachycardia, unspecified; I10 Essential (primary) hypertension; E11.9 Type 2 diabetes mellitus without complications
CPT/HCPCS: 36415; 71045; 80053; 85025; 93005; 93010; 99284

== ENCOUNTER 2019-10-22 11:02 | Emergency (ER) | payer MEDICARE, OTHER, MEDICAID ==
[2019-10-22] MEDS ORDERED: ASPIRIN 81 MG TABLET, CHEWABLE PO ONE (11:13)
--- NOTE | 2019-10-22 11:13 | ER Document Report ---
ED Medical Screen (RME) - General Chief Complaint: Chest Pain Stated Complaint: GENERAL WEAKNESS Time Seen by Provider: 10/22/19 11:06 Primary Care Provider: MARICARMEN ROBLES MD [Primary Care Provider] - Follow up as needed Mode of Arrival: Wheelchair Information source: Patient Notes: 64-year-old male presented to ED for complaint of chest pain with generalized weakness. Patient for stated that of her stomach was hurting where his heart is and when I asked him to point where his pain was he pointed to the center of his chest. He states he is also feeling very weak. According to the PCT who talked to the brother that dropped him off he told him that he was complaining of generalized weakness and stomach pain. Patient does answer some questions but does not answer in full sentences. Patient states his brother had his food ready for him but he could not eat due to the pain in his chest. I have greeted and performed a rapid initial assessment of this patient. A comprehensive ED assessment and evaluation of the patient, analysis of test results and completion of medical decision making process will be conducted by an additional ED providers. TRAVEL OUTSIDE OF THE [place] IN LAST 30 DAYS: No - Related Data Allergies/Adverse Reactions: No Known Allergies Allergy (Verified 08/17/19 11:37) Past Medical History - Past Medical History Cardiac Medical History: Reports: Hx Hypertension Denies: Hx Heart Attack Pulmonary Medical History: Denies: Hx Asthma Neurological Medical History: Reports: Hx Seizures. Denies: Hx Cerebrovascular Accident Endocrine Medical History: Reports: Hx Diabetes Mellitus Type 2 Renal/ Medical History: Denies: Hx Peritoneal Dialysis GI Medical History: Denies: Hx Hepatitis, Hx Hiatal Hernia, Hx Ulcer Musculoskeltal Medical History: Reports Hx Arthritis Psychiatric Medical History: Reports: Hx Schizophrenia Infectious Medical History: Denies: Hx Hepatitis Past Surgical History: Reports: Hx Orthopedic Surgery - R hand. Denies: Hx Open Heart Surgery, Hx Pacemaker - Immunizations Hx Diphtheria, Pertussis, Tetanus Vaccination: - unknown Doctor's Discharge - Discharge Referrals: MARICARMEN ROBLES MD [Primary Care Provider] - Follow up as needed
--- NOTE | 2019-10-22 11:49 | ER Document Report ---
ED General - General Chief Complaint: Chest Pain Stated Complaint: GENERAL WEAKNESS Time Seen by Provider: 10/22/19 11:06 Primary Care Provider: MARICARMEN ROBLES MD [Primary Care Provider] - Follow up as needed Mode of Arrival: Wheelchair Notes: HPI: Patient is a 64-year-old male with PMH including MR, grand mal seizures and congenital brain issues who presents today with multiple very nonspecific complaints. Patient persistently states that he is hungry and would like something to eat. Patient states he has headache, face pain, chest pain, abdominal pain, but is unable to tell me when this started or what it feels like. He denies fevers, vomiting, diarrhea, or cough. He denies any falls or trauma. I called the patient's brother, at [phone], whom the patient lives with to discuss the case. He states that the patient has complained of multiple issues of pain. No fevers, vomiting, or diarrhea. The patient has been to the emergency department a few times this month with very generalized complaints as well. His initial visit earlier this month showed a sodium of 125. The patient refused a repeat blood draw and the patient and the brother consented to AGAINST MEDICAL ADVICE. We have attempted to water restrict. The brother believes that the patient is angry at him given that they are trying to place the patient into a care facility. He denies any witnessed seizures, falls, weakness or numbness. ROS: See HPI Unable to obtain secondary to patient's condition Reviewed vital signs and nursing note as charted by RN. PHYSICAL EXAM: CONSTITUTIONAL: Alert but is unsure of exact date or time; he does appear well- nourished HEAD: Normocephalic; atraumatic EYES: PERRL; Conjunctivae clear, sclerae non-icteric ENT: Normal nose; no rhinorrhea; midface is stable with no facial swelling; moist mucous membranes; pharynx without lesions noted NECK: Supple without meningismus; non-tender; no cervical lymphadenopathy, no masses CARD: Regular rate and rhythm; no murmurs; symmetric distal pulses RESP: Normal chest excursion without splinting or tachypnea; breath sounds clear and equal bilaterally; no wheezes, no rhonchi, no rales ABD/GI: Normal bowel sounds; non-distended; soft, non-tender to deep palpation of all 4 quadrants of the abdomen GI/: Patient has no penile lesions or testicular pain or swelling BACK: The back appears normal and is non-tender to palpation EXT: Normal ROM in all joints; non-tender to palpation; no edema SKIN: No acute lesions noted NEURO: CN 2-12 intact; 5/5 bilateral upper and lower extremity strength with sensation intact to light touch PSYCH: The patient's mood and manner are appropriate. Grooming and personal hygiene are appropriate. TRAVEL OUTSIDE OF THE [place] IN LAST 30 DAYS: No - Related Data Allergies/Adverse Reactions: No Known Allergies Allergy (Verified 08/17/19 11:37) Past Medical History - General Information source: Patient - Social History Smoking Status: Never Smoker Family History: Reviewed & Not Pertinent Patient has suicidal ideation: No Patient has homicidal ideation: No - Past Medical History Cardiac Medical History: Reports: Hx Hypertension Denies: Hx Heart Attack Pulmonary Medical History: Denies: Hx Asthma Neurological Medical History: Reports: Hx Seizures. Denies: Hx Cerebrovascular Accident Endocrine Medical History: Reports: Hx Diabetes Mellitus Type 2 Renal/ Medical History: Denies: Hx Peritoneal Dialysis GI Medical History: Denies: Hx Hepatitis, Hx Hiatal Hernia, Hx Ulcer Musculoskeletal Medical History: Reports Hx Arthritis Psychiatric Medical History: Reports: Hx Schizophrenia Infectious Medical History: Denies: Hx Hepatitis Past Surgical History: Reports: Hx Orthopedic Surgery - R hand. Denies: Hx Open Heart Surgery, Hx Pacemaker - Immunizations Hx Diphtheria, Pertussis, Tetanus Vaccination: - unknown Physical Exam - Vital signs Vitals: Temp Pulse Resp BP Pulse Ox 97.9 F 91 18 131/86 H 99 10/22/19 11:07 10/22/19 11:07 10/22/19 11:07 10/22/19 11:07 10/22/19 11:07 Course - Re-evaluation Re-evalutation: Given the above history and physical we will obtain basic labs, repeat sodium level, imaging of the head and abdomen, troponin, EKG, and cardiac panel. We will try to find the etiology of the patient's complaints. Despite the patient stating his abdomen was hurting, his abdomen is soft, nondistended, with no tenderness to deep palpation of all 4 quadrants of the abdomen. Patient is repeatedly asking to eat food. 10/22/19 11:37 EKG shows heart rate of 83, normal sinus rhythm, no ST elevation or depression. 10/22/19 13:46 Labs and imaging as recorded. Sodium is improved from the initial 125 earlier this month. Normal liver panel. Normal bilirubin. I have repleted the patient's potassium. Still no focal tenderness to palpation of the abdomen. Troponin as recorded. Slightly elevated lipase but the patient has no vomiting or tenderness to the epigastric region. Patient has eaten without complaints. Awaiting the urine analysis. 10/22/19 15:46 Urine analysis as recorded. Vital signs are stable. Given the above history and physical with extensive imaging as recorded, with no vomiting here or pain to the abdomen, I do not believe that the patient qualifies for admission at this time. I have relayed this to the patient's brother Jose by phone. - Vital Signs Vital signs: Temp Pulse Resp BP Pulse Ox 97.9 F 91 13 119/67 98 10/22/19 11:07 10/22/19 11:07 10/22/19 14:00 10/22/19 12:01 10/22/19 14:00 - Laboratory Result Diagrams: 10/22/19 11:50 10/22/19 11:50 Laboratory results interpreted by me: 10/22/19 10/22/19 11:50 11:50 MCHC 36.3 H Sodium 128.3 L Magnesium 1.5 L AST 16 L Lipase 441.0 H Discharge - Discharge Clinical Impression: Generalized pain, Low sodium levels, Low magnesium level, Elevated lipase Condition: Good Disposition: HOME, SELF-CARE Additional Instructions: Come back immediately for any increased pain, fevers, vomiting, excessive diarrhea, change in mental status, or any other acute problems. Please have the patient follow-up with his primary care physician as we have discussed. Referrals: MARICARMEN ROBLES MD [Primary Care Provider] - Follow up as needed
[2019-10-22 12:22] LABS: ABSOLUTE LYMPHOCYTES (AUTO) 1.5 10^3/uL (0.5-4.7); ABSOLUTE MONOCYTES (AUTO) 0.5 10^3/uL (0.1-1.4); ABSOLUTE NEUT (AUTO) 3.2 10^3/uL (1.7-8.2); BASOPHILS % (AUTO) 0.6 % (0-2); EOSINOPHILS % (AUTO) 0.9 % (0-6); HEMOGLOBIN 14.9 g/dL (13.5-17.0); LYMPHOCYTES % (AUTO) 28.4 % (13-45); MEAN CORPUSCULAR HGB CONC 36.3 g/dL (32.0-36.0); MEAN CORPUSCULAR VOLUME 85 fl (80-97); MONOCYTES % (AUTO) 8.7 % (3-13); PLATELET COUNT 196 10^3/uL (150-450); RED CELL DISTRIBUTION WIDTH 13.1 % (11.5-14.0); SEGMENTED NEUTROPHILS % (AUTO) 61.4 % (42-78); TOTAL CELLS COUNTED % (AUTO) 100 %; WHITE BLOOD COUNT 5.3 10^3/uL (4.0-10.5)
[2019-10-22 12:39] LABS: ALKALINE PHOSPHATASE 47 U/L (38-126); ANION GAP 8 (5-19); ASPARTATE AMINO TRANSFERASE 16 U/L (17-59); BILIRUBIN,TOTAL 0.5 mg/dL (0.2-1.3); BLOOD UREA NITROGEN 15 mg/dL (7-20); CALCIUM 9.5 mg/dL (8.4-10.2); CARBON DIOXIDE 22 mmol/L (22-30); CHLORIDE 98 mmol/L (98-107); GLUCOSE 98 mg/dL (75-110); POTASSIUM 4.3 mmol/L (3.6-5.0); TOTAL PROTEIN 6.5 g/dL (6.3-8.2)
--- NOTE | 2019-10-22 13:36 | RADIOLOGY REPORT (SQ) ---
EXAM DESCRIPTION: CT HEAD WITHOUT IMAGES COMPLETED DATE/TIME: 10/22/2019 1:20 pm REASON FOR STUDY: 12: AMS COMPARISON: 09/05/2017 TECHNIQUE: Axial images acquired through the brain without intravenous contrast. Images reviewed wi th bone, brain and subdural windows. Additional sagittal and coronal reconstructions were generated. Images stored on PACS. All CT scanners at this facility use dose modulation, iterative reconstruction, and/or weight based d osing when appropriate to reduce radiation dose to as low as reasonably achievable (ALARA). [facility]: Dose Right [facility]: CareDose [facility]: Dose Right [facility]: Teradose 4D [facility]: InfoBasis RADIATION DOSE: CT Rad equipment meets quality standard of care and radiation dose reduction techniq ues were employed. CTDIvol: 53.2 mGy. DLP: 1070 mGy-cm. mGy. LIMITATIONS: Motion artifact degrades some images. FINDINGS: VENTRICLES: Prominent. CEREBRUM: No masses. No hemorrhage. No midline shift. Areas of low density in the white matter mos t likely due to chronic micro-vascular ischemic change. No evidence for acute infarction. CEREBELLUM: No masses. No hemorrhage. No alteration of density. No evidence for acute infarction. EXTRAAXIAL SPACES: Mild age-related involutional change. No fluid collections. No masses. ORBITS AND GLOBE: No intra- or extraconal masses. Normal contour of globe without masses. CALVARIUM: Motion artifact degrades evaluation of the at the craniocervical junction PARANASAL SINUSES: No fluid or mucosal thickening. SOFT TISSUES: No mass or hematoma. OTHER: No other significant finding. IMPRESSION: MILD CHRONIC CHANGES OF ATROPHY AND MICROVASCULAR ISCHEMIA. NO EVIDENCE OF ACUTE PROCES S. MOTION ARTIFACT DEGRADES EVALUATION OF THE BONES AT THE LEVEL OF THE CRANIOCERVICAL JUNCTION. IF CON CERN FOR CERVICAL INJURY RECOMMEND DEDICATED CERVICAL SPINE CT. EVIDENCE OF ACUTE STROKE: NO. TECHNICAL DOCUMENTATION: JOB ID: [id number] Quality ID # [id number]: Final reports with documentation of one or more dose reduction techniques (e.g., Au tomated exposure control, adjustment of the mA and/or kV according to patient size, use of iterative reconstruction technique) 2010 [employer]- All Rights Reserved Reading location - IP/workstation name: [email or web address]
--- NOTE | 2019-10-22 13:45 | RADIOLOGY REPORT (SQ) ---
EXAM DESCRIPTION: CT ABD/PELVIS WITH IV ONLY IMAGES COMPLETED DATE/TIME: 10/22/2019 1:25 pm REASON FOR STUDY: 12; abdominal pain COMPARISON: 09/09/2018 TECHNIQUE: CT scan of the abdomen and pelvis performed using helical scanning technique with dynamic intravenous contrast injection. No oral contrast. Images reviewed with lung, soft tissue, and bone windows. Reconstructed coronal and sagittal MPR images reviewed. Delayed images for evaluation of the urinary system also acquired. All images stored on PACS. All CT scanners at this facility use dose modulation, iterative reconstruction, and/or weight based d osing when appropriate to reduce radiation dose to as low as reasonably achievable (ALARA). [facility]: Dose Right [facility]: CareDose [facility]: Dose Right [facility]: Teradose 4D [facility]: RegenaStem CONTRAST TYPE AND DOSE: contrast/concentration: Isovue 350.00 mg/ml; Total Contrast Delivered: 74.0 ml; Total Saline Delivered: 67.0 ml RENAL FUNCTION: CREATININE 0.82 RADIATION DOSE: CT Rad equipment meets quality standard of care and radiation dose reduction techniq ues were employed. CTDIvol: 9.6 - 14.4 mGy. DLP: 1405 mGy-cm.. LIMITATIONS: Motion artifact degrades some images. . FINDINGS: LOWER CHEST: Grossly stable mild lingular consolidation and ground-glass attenuation. LIVER: Stable subcentimeter hypodense right hepatic dome lesion, likely cyst but difficult to charact erize due to size. No intrahepatic ductal dilation. No discrete mass. SPLEEN: Normal size. No focal lesions. PANCREAS: No masses. No significant calcifications. No adjacent inflammation or peripancreatic fluid collections. Pancreatic duct not dilated. GALLBLADDER: No identified stones by CT criteria. No inflammatory changes to suggest cholecystitis. ADRENAL GLANDS: No significant masses or asymmetry. RIGHT KIDNEY AND URETER: No solid masses. No significant calcifications. No hydronephrosis or hyd roureter. LEFT KIDNEY AND URETER: Stable 9 mm hypodense cortical lesion, possibly cyst but incompletely charact erize due to lesions size. No significant calcifications. No hydronephrosis or hydroureter. AORTA AND VESSELS: Scattered aortoiliac atherosclerosis without aneurysm. No dissection. Renal arteri es, SMA, celiac without stenosis. RETROPERITONEUM: No retroperitoneal adenopathy, hemorrhage or masses. BOWEL AND PERITONEAL CAVITY: No evidence of intestinal obstruction. No focal bowel wall thickening. Moderate formed stool throughout the colon. APPENDIX: Not identified. PELVIS: Decompressed urinary bladder with circumferential wall thickening, likely secondary to decomp ressed state. Prostatomegaly measuring 5.7 cm transversely. ABDOMINAL WALL: No masses. No hernias. BONES: No acute findings. No suspicious osseous lesions. Lower lumbar spondylosis. OTHER: No other significant finding. IMPRESSION: 1. Stable mild lingular consolidation and ground-glass attenuation, likely scarring alt abe infectious/inflammatory process not excluded. 2. Mild circumferential bladder wall thickening, likely secondary to decompressed state although cys titis not excluded. Recommend correlation with urinalysis. 3. Prostatomegaly. TECHNICAL DOCUMENTATION: JOB ID: [id number] Quality ID # [id number]: Final reports with documentation of one or more dose reduction techniques (e.g., Au tomated exposure control, adjustment of the mA and/or kV according to patient size, use of iterative reconstruction technique) 2010 [employer]- All Rights Reserved Reading location - IP/workstation name: [email or web address]
--- NOTE | 2019-10-22 14:06 | RADIOLOGY REPORT (SQ) ---
EXAM DESCRIPTION: CHEST 2 VIEWS IMAGES COMPLETED DATE/TIME: 10/22/2019 1:48 pm REASON FOR STUDY: chest pain COMPARISON: 10/14/2019 EXAM PARAMETERS: NUMBER OF VIEWS: two views TECHNIQUE: Digital Frontal and Lateral radiographic views of the chest acquired. RADIATION DOSE: NA LIMITATIONS: none FINDINGS: LUNGS AND PLEURA: Incomplete inspiration. No opacities, masses or pneumothorax. No pleura l effusion. MEDIASTINUM AND HILAR STRUCTURES: No masses or contour abnormalities. HEART AND VASCULAR STRUCTURES: Heart normal size. No evidence for failure. BONES: No acute findings. HARDWARE: None in the chest. OTHER: Radiopaque densities overlie left axilla with fluid levels, likely residual contrast within ax illary veins from same day CT. IMPRESSION: Stable minimal lingular opacities possibly scarring or chronic infectious/inflammatory p rocess. TECHNICAL DOCUMENTATION: JOB ID: [id number] 2010 [employer]- All Rights Reserved Reading location - IP/workstation name: [email or web address]
[2019-10-22] MEDS: MAGNESIUM SULFATE/D5W 1 GM/100 ML RTUPB IV SCH ×2 (14:19→16:00)
[2019-10-22 15:00] LABS: APPEARANCE,URINE CLEAR; BILIRUBIN,URINE NEGATIVE (NEGATIVE); COLOR,URINE STRAW; GLUCOSE, URINE NEGATIVE (NEGATIVE); KETONES,URINE NEGATIVE (NEGATIVE); LEUKOCYTE ESTERASE,URINE NEGATIVE (NEGATIVE); NITRITE,URINE NEGATIVE (NEGATIVE); PROTEIN,URINE NEGATIVE (NEGATIVE); UROBILINOGEN,URINE NEGATIVE mg/dL (<2.0)
[2019-10-22 17:46] VITALS: BP 128/81
--- NOTE | 2019-10-22 22:47 | EKG REPORT ---
SEVERITY:- NORMAL ECG - SINUS RHYTHM : Confirmed by: Melany Hinson 22-Oct-2019 22:46:20
== END 2019-10-22 17:46 | disposition home or self-care (01) ==
LOC: ER 11:02
DX: R07.9 Chest pain, unspecified (principal); R10.9 Unspecified abdominal pain; F79 Unspecified intellectual disabilities; I10 Essential (primary) hypertension; E11.9 Type 2 diabetes mellitus without complications; R79.89 Other specified abnormal findings of blood chemistry
CPT/HCPCS: 93005; 99284; 96365; 96366; 36415; 83690; 83735; 85025; 80053; 81001; 84484; 71046; 70450; 74177; 93010; A9270; J3475

== ENCOUNTER → 2019-11-05 | Outpatient (CLI) | payer MEDICARE, OTHER, MEDICAID ==
--- NOTE | 2019-11-05 13:16 | RADIOLOGY REPORT (SQ) ---
EXAM DESCRIPTION: CHEST PA/LATERAL IMAGES COMPLETED DATE/TIME: 11/05/2019 12:59 pm REASON FOR STUDY: ENCOUNTER FOR SCREENING FOR RESPIRATORY TUBERCULOSIS COMPARISON: PA and lateral views of the chest from 10/22/2019. EXAM PARAMETERS: NUMBER OF VIEWS: two views TECHNIQUE: PA and lateral views of the chest were obtained RADIATION DOSE: NA LIMITATIONS: none FINDINGS: LUNGS AND PLEURA: No consolidation, pleural effusion or pneumothorax. MEDIASTINUM AND HILAR STRUCTURES: No mediastinal or hilar contour abnormality. HEART AND VASCULAR STRUCTURES: The cardiac silhouette and pulmonary vasculature are within normal bianchi its. BONES: Findings of DISH. HARDWARE: None in the chest. OTHER: No other finding. IMPRESSION: No acute cardiopulmonary process. TECHNICAL DOCUMENTATION: JOB ID: [id number] 2010 [employer]- All Rights Reserved Reading location - IP/workstation name: [email or web address]
== END ==
LOC: RAD 12:43
PROVIDERS: ATTEND Internal Medicine
DX: Z11.1 Encounter for screening for respiratory tuberculosis (principal)
CPT/HCPCS: 71046

== ENCOUNTER → 2019-11-21 | Emergency (ER) | payer MEDICARE, MEDICAID ==
[~2019-11-21] MED LIST changes: +ACETAMINOPHEN 325 MG TABLET ONE; +ACETAMINOPHEN 325 MG TABLET PO ONE; -BUPIVACAINE HCL 0.75% INJ/PF (7.5 MG/1 ML) 10 ML SDV OS PRN; -CHONDR SU A NA/HYALUR INTRAOC KIT (SURGICARE) ONE; +DIVALPROEX SODIUM 250 MG TABLET.DR PO ONE; -EPINEPHRINE INJ/PF 1 MG/1 ML AMPULE ONE; -KETOROLAC TROMETHAMINE 0.45% 4 DROP/0.4 ML DROPERETTE OS PRN; -LIDOCAINE 1% INJ-PF (10 MG/ML) 30 ML SDV ONE; -LIDOCAINE 4% INJ/PF (40 MG/ML) 5 ML AMPUL OS PRN; +LISINOPRIL 10 MG TABLET PO ONE; -TOBRAMYCIN SULFATE/DEXAMETH OPH SUSP 2.5 ML ONE; +TOPIRAMATE 100 MG TABLET PO SCH
[2019-11-21 15:41] LABS: ABSOLUTE BASOPHILS # (AUTO) 0.1 10^3/uL (0.0-0.2); ABSOLUTE LYMPHOCYTES (AUTO) 2.1 10^3/uL (0.5-4.7); ABSOLUTE MONOCYTES (AUTO) 0.7 10^3/uL (0.1-1.4); ABSOLUTE NEUT (AUTO) 4.3 10^3/uL (1.7-8.2); EOSINOPHILS % (AUTO) 0.3 % (0-6); HEMATOCRIT 45.8 % (37.9-51.0); HEMOGLOBIN 15.9 g/dL (13.5-17.0); LYMPHOCYTES % (AUTO) 28.5 % (13-45); MEAN CORPUSCULAR HGB CONC 34.6 g/dL (32.0-36.0); MEAN CORPUSCULAR VOLUME 87 fl (80-97); MONOCYTES % (AUTO) 10.3 % (3-13); PLATELET COUNT 218 10^3/uL (150-450); RED BLOOD COUNT 5.28 10^6/uL (4.35-5.55); RED CELL DISTRIBUTION WIDTH 13.2 % (11.5-14.0); SEGMENTED NEUTROPHILS % (AUTO) 59.9 % (42-78); TOTAL CELLS COUNTED % (AUTO) 100 %; WHITE BLOOD COUNT 7.2 10^3/uL (4.0-10.5)
[2019-11-21 15:51] LABS: ALBUMIN 4.8 g/dL (3.5-5.0); ALKALINE PHOSPHATASE 50 U/L (38-126); ANION GAP 9 (5-19); ASPARTATE AMINO TRANSFERASE 21 U/L (17-59); BILIRUBIN,TOTAL 0.5 mg/dL (0.2-1.3); BLOOD UREA NITROGEN 19 mg/dL (7-20); CALCIUM 9.9 mg/dL (8.4-10.2); CARBON DIOXIDE 25 mmol/L (22-30); CHLORIDE 105 mmol/L (98-107); GLUCOSE 140 mg/dL (75-110); POTASSIUM 4.3 mmol/L (3.6-5.0); TOTAL PROTEIN 7.7 g/dL (6.3-8.2)
[2019-11-21 15:55] LABS: ACETAMINOPHEN < 10 ug/mL (10-30); ALCOHOL < 10 mg/dL (NONE DETECTED); SALICYLATE < 1.0 mg/dL (2.0-20.0)
[2019-11-21 17:02] LABS: APPEARANCE,URINE CLEAR; BILIRUBIN,URINE NEGATIVE (NEGATIVE); COLOR,URINE YELLOW; GLUCOSE, URINE NEGATIVE (NEGATIVE); KETONES,URINE NEGATIVE (NEGATIVE); LEUKOCYTE ESTERASE,URINE NEGATIVE (NEGATIVE); NITRITE,URINE NEGATIVE (NEGATIVE); PROTEIN,URINE NEGATIVE (NEGATIVE); URINE SPECIFIC GRAVITY 1.016; UROBILINOGEN,URINE NEGATIVE mg/dL (<2.0)
[2019-11-21 17:48] LABS: URINE AMPHETAMINES SCREEN NEGATIVE; URINE BARBITURATES SCREEN NEGATIVE; URINE BENZODIAZEPINES SCREEN NEGATIVE; URINE COCAINE SCREEN NEGATIVE; URINE MARIJUANA (THC) SCREEN NEGATIVE; URINE METHADONE SCREEN NEGATIVE; URINE PHENCYCLIDINE SCREEN NEGATIVE
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
[2019-11-21] MEDS: RISPERIDONE 1 MG TABLET PO SCH (20:31)
[2019-11-21] MEDS: TOPIRAMATE 100 MG TABLET PO SCH (21:41)
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
[2019-11-22] MEDS: TOPIRAMATE 100 MG TABLET PO SCH ×3 (10:17→19:01)
[2019-11-22] MEDS: RISPERIDONE 1 MG TABLET PO SCH ×2 (10:17→19:00)
[2019-11-22] MEDS: DIVALPROEX SODIUM 500 MG TAB.SR.24H PO SCH (10:17)
[2019-11-22] MEDS: LISINOPRIL 10 MG TABLET PO SCH (10:18)
--- NOTE | 2019-11-22 14:44 | ER Document Report ---
Doctor's Note Notes: 11/22/19 14:43 Patient has not had any issues today. He would prefer to return home to live with his brother then go to a facility. Behavioral health is going to speak with his family and try to make arrangements for him to return home.
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
[2019-11-23] MEDS: DIVALPROEX SODIUM 500 MG TAB.SR.24H PO SCH (10:00)
[2019-11-23] MEDS: LISINOPRIL 10 MG TABLET PO SCH (10:59)
[2019-11-23] MEDS: RISPERIDONE 1 MG TABLET PO SCH ×2 (10:59→18:35)
[2019-11-23] MEDS: TOPIRAMATE 100 MG TABLET PO SCH ×3 (10:59→18:35)
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
[2019-11-23 23:28] VITALS: BP 106/77
== END ==
LOC: ER 14:43
DX: F25.9 Schizoaffective disorder, unspecified (principal); F91.9 Conduct disorder, unspecified; R89.2 Abnormal level of other drugs, medicaments and biological substances in specimens from other organs, systems and tissues; I10 Essential (primary) hypertension; E11.9 Type 2 diabetes mellitus without complications
CPT/HCPCS: 36415; 80307 ×4; 83735; 85025; 80053; 81001; 80164; A9270 ×4; J3490